=== PATIENT | female | born 1950 | race Two or more races ===

== ENCOUNTER 2018-12-17 18:13 | Inpatient (IN) | payer SELFPAY ==
[~2018-12-17] VITALS: Ht 154.9 cm; Wt 46.7 kg
[2018-12-17] MEDS ORDERED: ONDANSETRON PF 4 MG/2 ML VIAL. IV ONE (20:15)
[2018-12-17] MEDS ORDERED: IV NORMAL SALINE 1000ML BAG 1,000 ML IV SCH (20:15)
[2018-12-17] MEDS ORDERED: fentaNYL PF VIAL 100 MCG/2 ML VIAL IV ONE (20:15)
[2018-12-17 20:43] LABS: BASO # 0.1 x10^3/uL (0.0-0.2); BASO % 0 % (0-3); EOS % 0 % (0-3); HEMATOCRIT 37.2 % (36.0-47.0); HEMOGLOBIN 12.7 g/dL (12.0-15.5); LYMPH # 0.4 x10^3/uL (1.0-4.8); LYMPH % 3 % (24-48); MEAN CORPUSCULAR HEMOGLOBIN 31 pg (25-35); MEAN CORPUSCULAR HGB CONC 34 g/dL (31-37); MEAN CORPUSCULAR VOLUME 91 fL (79-100); MONO # 0.7 x10^3/uL (0.0-1.1); MONO % 5 % (0-9); NEUT % 92 % (31-73); PLATELET COUNT 169 x10^3/uL (140-400); RED BLOOD COUNT 4.07 x10^6/uL (3.50-5.40); RED CELL DISTRIBUTION WIDTH 13.4 % (11.5-14.5); WHITE BLOOD COUNT 16.3 x10^3/uL (4.0-11.0)
[2018-12-17 21:02] LABS: PROTHROMBIN TIME PATIENT 14.3 SEC (11.7-14.0)
[2018-12-17 21:07] LABS: CALCIUM 9.3 mg/dL (8.5-10.1); CREATININE 1.6 mg/dL (0.6-1.0); GFR 32.2; POTASSIUM 4.5 mmol/L (3.5-5.1)
--- NOTE | 2018-12-17 21:09 | RAD ---
CT abdomen and pelvis without contrast: Reason for examination: Abdominal pain with nausea, vomiting and diarrhea. Helical images were obtained through the abdomen pelvis with no intravenous or oral contrast administered. Reconstruction was performed in sagittal and coronal planes. Exposure: One or more of the following individualized dose reduction techniques were utilized for this examination: 1. Automated exposure control 2. Adjustment of the mA and/or kV according to patient size 3. Use of iterative reconstruction technique. The lung bases are clear. The heart size is normal with no pericardial effusion evident. No abnormality seen at the liver, gallbladder, spleen, adrenal glands or pancreas. No abnormality seen at the appendix. The colon shows no no diverticulosis or diverticulitis. The small intestinal tract is not abnormally dilated. No abnormality seen at this stomach. The right kidney shows no renal masses, renal calculi, hydronephrosis or obstructive uropathy. The left kidney shows no renal masses, renal calculi, hydronephrosis or obstructive uropathy but there does appear to be some perinephric stranding. This could reflect pyelonephritis. No abnormality seen at the bladder or vaginal cuff. There are calcifications consistent with phleboliths in the pelvis. No acute bony abnormalities are seen. IMPRESSION: No renal calculi, hydronephrosis or evidence of obstructive uropathy however there is some perinephric stranding in the left retroperitoneal region. This could reflect pyelonephritis. Recommend clinical correlation follow-up. No other focal abnormality seen in the abdomen or pelvis. Electronically signed by: Zehra Seaman MD (12/17/2018 9:06 PM) [facility]
[2018-12-17 21:10] LABS: % BANDS 30 % (0-9); % LYMPHS 3 % (24-48); % MONOS 4 % (0-10); % SEGS 63 % (35-66); ALBUMIN 3.4 g/dL (3.4-5.0); ALBUMIN/GLOBULIN RATIO 0.8 (1.0-1.7); TOTAL BILIRUBIN 0.6 mg/dL (0.2-1.0); TOTAL PROTEIN 7.5 g/dL (6.4-8.2)
[2018-12-17 21:11] LABS: PLT ESTIMATE ADEQUATE (ADEQUATE)
[2018-12-17 21:26] LABS: BILIRUBIN,URINE NEGATIVE (NEG); CLARITY,URINE CLEAR; COLOR,URINE YELLOW; NITRITE,URINE POSITIVE (NEG); PROTEIN,URINE 100 mg/dL (NEG-TRACE); UROBILINOGEN,URINE 0.2 mg/dL (0.2 mg/dL)
[2018-12-17 21:41] LABS: BACTERIA,URINE MANY /HPF (0-FEW); SQUAMOUS EPITHELIAL CELL,UR FEW /LPF; WBC,URINE TNTC /HPF (0-4)
--- NOTE | 2018-12-17 21:43 | PHYS DOC ---
Past Medical History Past Medical History: Diabetes-Type II, Hypertension Past Surgical History: No Surgical History Alcohol Use: None Drug Use: None Adult General Chief Complaint Chief Complaint: NAUSEA/VOMITING/DIARRHA HPI HPI Patient is a 68 year old Algerian speaking female who presents with complaining of nausea and vomiting and diarrhea and abdominal pain. Patient complaining of 4 episodes of vomiting yesterday and 3 episodes of vomiting today. Patient states she had more than 10 episodes of nonbloody diarrhea since yesterday and complaining of constant aching right lower quadrant and suprapubic pain with r adiation to her back since yesterday and rated her pain 9/10. Patient complaining of decrease of appetite and urine output without fever and chills, chest pain, shortness of breath, sick contact. Review of Systems Review of Systems Constitutional: Denies fever or chills [] Eyes: Denies change in visual acuity, redness, or eye pain [] HENT: Denies nasal congestion or sore throat [] Respiratory: Denies cough or shortness of breath [] Cardiovascular: No additional information not addressed in HPI [] GI: Reports abdominal pain, nausea, vomiting, diarrhea [] : Denies dysuria or hematuria [] Musculoskeletal: Denies back pain or joint pain [] Integument: Denies rash or skin lesions [] Neurologic: Denies headache, focal weakness or sensory changes [] Endocrine: Denies polyuria or polydipsia [] All other systems were reviewed and found to be within normal limits, except as documented in this note. Current Medications Current Medications Current Medications Medications (Trade) Dose Ordered Sig/Gareth Start Time Stop Time Status Last Admin Dose Admin Ceftriaxone Sodium (Rocephin) 1 gm 1X ONCE 12/17/18 22:00 12/17/18 22:01 DC 12/17/18 21:45 1 GM Dextrose (Dextrose 50%-Water Syringe) 12.5 gm PRN Q15MIN PRN 12/17/18 22:15 Fentanyl Citrate (Fentanyl 2ml Vial) 25 mcg 1X ONCE 12/17/18 20:15 12/17/18 20:52 DC 12/17/18 21:10 25 MCG Ondansetron HCl (Zofran) 4 mg PRN Q8HRS PRN 12/17/18 22:15 12/18/18 22:14 Sodium Chloride 1,000 ml @ 150 mls/hr Q6H40M 12/17/18 22:30 12/18/18 22:29 Allergies Allergies Allergies Coded Allergies Type Severity Reaction Last Updated Verified No Known Drug Allergies 12/17/18 No Physical Exam Physical Exam Constitutional: Moderate distress, non-toxic appearance. [] HENT: Normocephalic, atraumatic, oropharynx dry. Eyes: PERRLA, EOMI, conjunctiva normal, no discharge. [] Neck: Normal range of motion, no tenderness, supple, no stridor. [] Cardiovascular: Tachycardia, no murmur [] Lungs & Thorax: Bilateral breath sounds clear to auscultation [] Abdomen: Bowel sounds normal, soft, suprapubic guarding ,no tenderness, no aniceto s, no pulsatile masses. [] Skin: Warm, dry, no erythema, no rash. [] Back: No tenderness. Extremities: No tenderness, no cyanosis, no clubbing, ROM intact, no edema. [] Neurologic: Alert and oriented X 3, normal motor function, normal sensory function, no focal deficits noted. [] Psychologic: Affect normal, judgement normal, mood normal. [] Current Patient Data Vital Signs Vital Signs Date Time Temp Pulse Resp B/P (MAP) Pulse Ox O2 Delivery O2 Flow Rate FiO2 12/17/18 21:10 16 99 Room Air 12/17/18 20:15 98.4 124 125/71 (89) 98.4 Lab Values Laboratory Tests Test 12/17/18 19:15 12/17/18 20:25 12/17/18 22:02 Urine Collection Type Unknown Urine Color Yellow Urine Clarity Clear Urine pH 6.0 Urine Specific [place] 1.015 Urine Protein 100 mg/dL (NEG-TRACE) Urine Glucose (UA) >=1000 mg/dL (NEG) Urine Ketones (Stick) Negative mg/dL (NEG) Urine Blood Moderate (NEG) Urine Nitrite Positive (NEG) Urine Bilirubin Negative (NEG) Urine Urobilinogen Dipstick 0.2 mg/dL (0.2 mg/dL) Urine Leukocyte Esterase Moderate (NEG) Urine RBC 6-10 /HPF (0-2) Urine WBC Tntc /HPF (0-4) Urine Squamous Epithelial Cells Few /LPF Urine Bacteria Many /HPF (0-FEW) White Blood Count 16.3 x10^3/uL (4.0-11.0) H Red Blood Count 4.07 x10^6/uL (3.50-5.40) Hemoglobin 12.7 g/dL (12.0-15.5) Hematocrit 37.2 % (36.0-47.0) Mean Corpuscular Volume 91 fL (79-100) Mean Corpuscular Hemoglobin 31 pg (25-35) Mean Corpuscular Hemoglobin Concent 34 g/dL (31-37) Red Cell Distribution Width 13.4 % (11.5-14.5) Platelet Count 169 x10^3/uL (140-400) Neutrophils (%) (Auto) 92 % (31-73) H Lymphocytes (%) (Auto) 3 % (24-48) L Monocytes (%) (Auto) 5 % (0-9) Eosinophils (%) (Auto) 0 % (0-3) Basophils (%) (Auto) 0 % (0-3) Neutrophils # (Auto) 15.0 x10^3uL (1.8-7.7) H Lymphocytes # (Auto) 0.4 x10^3/uL (1.0-4.8) L Monocytes # (Auto) 0.7 x10^3/uL (0.0-1.1) Eosinophils # (Auto) 0.0 x10^3/uL (0.0-0.7) Basophils # (Auto) 0.1 x10^3/uL (0.0-0.2) Segmented Neutrophils % 63 % (35-66) Band Neutrophils % 30 % (0-9) H Lymphocytes % 3 % (24-48) L Monocytes % 4 % (0-10) Platelet Estimate Adequate (ADEQUATE) Prothrombin Time 14.3 SEC (11.7-14.0) H Prothrombin Time INR 1.1 (0.8-1.1) Sodium Level 131 mmol/L (136-145) L Potassium Level 4.5 mmol/L (3.5-5.1) Chloride Level 92 mmol/L (98-107) L Carbon Dioxide Level 23 mmol/L (21-32) Anion Gap 16 (6-14) H Blood Urea Nitrogen 40 mg/dL (7-20) H Creatinine 1.6 mg/dL (0.6-1.0) H Estimated GFR (Cockcroft-Gault) 32.2 BUN/Creatinine Ratio 25 (6-20) H Glucose Level 398 mg/dL (70-99) H Lactic Acid Level 2.7 mmol/L (0.4-2.0) H Calcium Level 9.3 mg/dL (8.5-10.1) Total Bilirubin 0.6 mg/dL (0.2-1.0) Aspartate Amino Transferase (AST) 21 U/L (15-37) Alanine Aminotransferase (ALT) 20 U/L (14-59) Alkaline Phosphatase 87 U/L (46-116) Creatine Kinase 36 U/L (26-192) Troponin I Quantitative < 0.017 ng/mL (0.000-0.055) Total Protein 7.5 g/dL (6.4-8.2) Albumin 3.4 g/dL (3.4-5.0) Albumin/Globulin Ratio 0.8 (1.0-1.7) L Lipase 103 U/L (73-393) Glucose (Fingerstick) 360 mg/dL (70-99) H Laboratory Tests 12/17/18 20:25 Laboratory Tests 12/17/18 20:25 EKG EKG EKG interpreted by me. EKG at 2020 shows sinus tachycardia at rate of 121, normal TN and QT intervals, poor R-wave progress in anteroseptal leads, no acute ST and T-wave abnormalities. Radiology/Procedures Radiology/Procedures [][facility] [address] [place] [address] IMAGING REPORT Signed PATIENT: ASHER HERRERA ACCOUNT: [id number] : 1950 LOCATION: ER AGE: 68 SEX: F EXAM STATUS: REG ER ORD. PHYSICIAN: ZOHRA ESQUIVEL MD REASON: abdominal pain, N/V/D, NO PRIORS, NON CONTRAST PER ORDER PROCEDURE: CT ABDOMEN PELVIS WO CONTRAST CT abdomen and pelvis without contrast: Reason for examination: Abdominal pain with nausea, vomiting and diarrhea. Helical images were obtained through the abdomen pelvis with no intravenous or oral contrast administered. Reconstruction was performed in sagittal and coronal planes. Exposure: One or more of the following individualized dose reduction techniques were utilized for this examination: 1. Automated exposure control 2. Adjustment of the mA and/or kV according to patient size 3. Use of iterative reconstruction technique. The lung bases are clear. The heart size is normal with no pericardial effusion evident. No abnormality seen at the liver, gallbladder, spleen, adrenal glands or pancreas. No abnormality seen at the appendix. The colon shows no no diverticulosis or diverticulitis. The small intestinal tract is not abnormally dilated. No abnormality seen at this stomach. The right kidney shows no renal masses, renal calculi, hydronephrosis or obstructive uropathy. The left kidney shows no renal masses, renal calculi, hydronephrosis or obstructive uropathy but there does appear to be some perinephric stranding. This could reflect pyelonephritis. No abnormality seen at the bladder or vaginal cuff. There are calcifications consistent with phleboliths in the pelvis. No acute bony abnormalities are seen. IMPRESSION: No renal calculi, hydronephrosis or evidence of obstructive uropathy however there is some perinephric stranding in the left retroperitoneal region. This could reflect pyelonephritis. Recommend clinical correlation follow-up. No other focal abnormality seen in the abdomen or pelvis. Electronically signed by: Med Gongora MD (12/17/2018 9:06 PM) [facility] DICTATED and SIGNED BY: MED GONGORA MD DATE: 12/17/182105 Course & Med Decision Making Course & Med Decision Making Pertinent Labs and Imaging studies reviewed. (See chart for details) Evaluation of patient in ER showed 68-year-old female patient with complaining of nausea and vomiting and diarrhea and anal pain since yesterday. Patient had heart rate of 125 at arrival to ER without hypertension or fever or confusion. Patient treated with IV fluid, Zofran, fentanyl with improvement of heart rate and pain. Patient had blood sugar of 398 that improved gradually with IV fluid. She had leukocytosis of 16,000 and UTI and elevation of BUN/creatinine. Of abdomen and pelvis showed possible pyelonephritis. Patient treated with IV antibiotic.Patient requiring admission for further evaluation and treatment. Discussed with Dr. Shields who is in agreement with admission. Discussed findings and plan with patient and family, who acknowledge understanding and agreement. Dragon Disclaimer Dragon Disclaimer This electronic medical record was generated, in whole or in part, using a voice recognition dictation system. Departure Departure Impression: Primary Impression: Sepsis Additional Impressions: Acute gastroenteritis Renal insufficiency Hyperglycemia Uncontrolled diabetes mellitus Pyelonephritis Disposition: 09 ADMITTED INPATIENT (at 2204) Admitting Physician: Shraddha Shields (accepted admission at 22 or 3) Condition: GUARDED Referrals: NO PCP (PCP) Problem Qualifiers Primary Impression: Sepsis Sepsis type: sepsis due to unspecified organism Qualified Codes: A41.9 - Sepsis, unspecified organism Additional Impressions: Uncontrolled diabetes mellitus Diabetes mellitus type: type 2 Glycemic state: with hyperglycemia Qualified Codes: E11.65 - Type 2 diabetes mellitus with hyperglycemia ZOHRA ESQUIVEL MD December 17, 2018 21:43
[2018-12-17] MEDS ORDERED: IV NORMAL SALINE 1000ML BAG 1,000 ML IV ONE (22:00)
[2018-12-17] MEDS ORDERED: cefTRIAXone IV Push 1 GM VIAL. IVP ONE (22:00)
[2018-12-17] MEDS ORDERED: DEXTROSE 50% 25 GM / 50ML DISP.SYRIN. IV PRN (22:15)
[2018-12-17] MEDS ORDERED: ONDANSETRON PF 4 MG/2 ML VIAL. IV PRN (22:15)
[2018-12-17] MEDS: IV NORMAL SALINE 1000ML BAG 1,000 ML IV SCH (22:30)
[2018-12-18] VITALS (7 sets, daily range): BP systolic 111–183; BP diastolic 55–97
[2018-12-18] MEDS ORDERED: DEXTROSE 50% 25 GM / 50ML DISP.SYRIN. IV PRN ×2 (01:30→01:45)
[2018-12-18] MEDS ORDERED: INSULIN LISPRO 300 UNITS/3 ML INSULN.PEN. SQ ONE (02:00)
--- NOTE | 2018-12-18 02:30 | NUR ---
This nurse in room to administer 10units of Humalog to patient. Patient stated last time she received insulin her vision became very blurry and requested to have a smaller dose. 7 units of insulin administered at this time. Blood sugar 310. Will continue to monitor.
[2018-12-18] MEDS ORDERED: fentaNYL PF VIAL 100 MCG/2 ML VIAL IV PRN (02:45)
--- NOTE | 2018-12-18 04:30 | NUR ---
Patient became very nauseous, called this nurse investment professional light. Upon arriving to room, patient's heart rate in 130's-140's. Glucose 241. Temp 100.2. Blood pressure 180/77. Patient shaking stating she is cold. Dr.Marsh armstrong, received orders for Metoprolol and Tylenol. Will continue to monitor.
[2018-12-18] MEDS ORDERED: ACETAMINOPHEN 325 MG TABLET. PO PRN (04:45)
[2018-12-18] MEDS ORDERED: METOPROLOL TART IMMED RELEASE 50 MG TABLET. PO ONE (05:00)
[2018-12-18] MEDS: IV NORMAL SALINE 1000ML BAG 1,000 ML IV SCH ×3 (05:10→18:30)
--- NOTE | 2018-12-18 06:23 | EKG ---
[facility] [address] [place] [address] Test Date: 2018-12-17 Test Time: 20:21:03 Pat Name: ASHER HERRERA Department: Room: Gender: F [employer]: : 1950 Requested By: ZOHRA ESQUIVEL Order Number: [id number] Reading MD: Measurements Intervals [place] Rate: 121 P: 64 SC: 132 QRS: 9 QRSD: 74 T: 59 QT: 304 QTc: 434 Interpretive Statements SINUS TACHYCARDIA QRS(T) CONTOUR ABNORMALITY CONSIDER ANTEROSEPTAL MYOCARDIAL DAMAGE POSSIBLY ABNORMAL ECG RI6.01 Unconfirmed report No previous ECG available for comparison
[2018-12-18] MEDS: INSULIN LISPRO 300 UNITS/3 ML INSULN.PEN. SQ SCH ×3 (08:00→17:00)
[2018-12-18] MEDS ORDERED: INSULIN LISPRO 300 UNITS/3 ML INSULN.PEN. SQ SCH (08:00)
[2018-12-18] MEDS ORDERED: MORPHINE SULFATE 2 MG/ML VIAL. IV PRN (09:00)
[2018-12-18] MEDS ORDERED: ONDANSETRON PF 4 MG/2 ML VIAL. IV PRN (09:00)
[2018-12-18] MEDS ORDERED: diphenhydrAMINE HCL 25 MG CAPSULE PO PRN (09:00)
[2018-12-18] MEDS: METOPROLOL TART IMMED RELEASE 50 MG TABLET. PO SCH ×2 (10:30→20:35)
--- NOTE | 2018-12-18 10:59 | PDOC1 ---
History and Physical Date of Admission Date of Admission DATE: 12/18/18 TIME: 10:51 Identification/Chief Complaint Chief Complaint abd pain Source Source: Caregiver, Chart review, Patient History of Present Illness History of Present Illness She only speaks minimal Taiwanese, there is no family at bedside. Most of the hx obtained from chart. SHe had nausea, vomiting, diarrhea, abdominal pain. 4 episodes of vomiting prior to admission. Nonbloody diarrhea. Denies recent sick contact or travel. Admitted for working diagnosis of acute gastroenteritis with nonimpressive CAT scan. But found to have UTI. Diabetic with blood sugar 360 on insulin with unknown regimen. [facility] is in [place], Lactate was 2.7 at ER but now down to 1.6 which is normal. Increased anion gap at 16 with mild hyponatremia 131 and AK I of 1.6 creatinine. We will admit. Continue hydration recheck anion gap and BMP. Avoid nephrotoxins. Empiric antibiotics. Called by RN for GNR marleny in 1 out of 4 bottles and I have consulted ID She claims she feels much better today She ate her breakfast pretty good addendum: dtr now tells staff she is on metformin 850 maybe twice a day Creatinine is 1.4, I cannot resume metformin yet We'll do sliding scale insulin for now check A1c Past Medical History Endocrine: Diabetes Past Surgical History Past Surgical History: No pertinent history Family History Family History: Diabetes, Hypertension Social History Smoke: No ALCOHOL: none Drugs: None Current Problem List Problem List Problems Medical Problems: (1) Acute gastroenteritis Status: Acute (2) Hyperglycemia Status: Acute (3) Pyelonephritis Status: Acute (4) Renal insufficiency Status: Acute (5) Sepsis Status: Acute (6) Uncontrolled diabetes mellitus Status: Acute Current Medications Current Medications Current Medications Sodium Chloride 1,000 ml @ 1,000 mls/hr Q1H IV Last administered on 12/17/18at 21:10; Start 12/17/18 at 20:15; Stop 12/17/18 at 21:14; Status DC Fentanyl Citrate (Fentanyl 2ml Vial) 25 mcg 1X ONCE IV Last administered on 12/17/18at 21:10; Start 12/17/18 at 20:15; Stop 12/17/18 at 20:52; Status DC Ondansetron HCl (Zofran) 4 mg 1X ONCE IV Last administered on 12/17/18at 21:11; Start 12/17/18 at 20:15; Stop 12/17/18 at 20:52; Status DC Ceftriaxone Sodium (Rocephin) 1 gm 1X ONCE IVP Last administered on 12/17/18at 21:45; Start 12/17/18 at 22:00; Stop 12/17/18 at 22:01; Status DC Sodium Chloride 1,000 ml @ 1,000 mls/hr 1X ONCE IV Last administered on 12/17/18at 21:47; Start 12/17/18 at 22:00; Stop 12/17/18 at 22:59; Status DC Ondansetron HCl (Zofran) 4 mg PRN Q8HRS PRN IV NAUSEA/VOMITING 1ST CHOICE Last administered on 12/18/18at 04:30; Start 12/17/18 at 22:15; Stop 12/18/18 at 08:49; Status DC Sodium Chloride 1,000 ml @ 150 mls/hr Q6H40M IV Last administered on 12/17/18at 22:30; Start 12/17/18 at 22:30; Stop 12/18/18 at 22:29 Dextrose (Dextrose 50%-Water Syringe) 12.5 gm PRN Q15MIN PRN IV SEE COMMENTS; Start 12/17/18 at 22:15; Stop 12/18/18 at 08:51; Status DC Insulin Human Lispro (HumaLOG) 0-9 UNITS TIDWMEALS SQ ; Start 12/18/18 at 08:00; Status UNV Dextrose (Dextrose 50%-Water Syringe) 12.5 gm PRN Q15MIN PRN IV SEE COMMENTS; Start 12/18/18 at 01:30; Status UNV Insulin Human Lispro (HumaLOG) 0-9 UNITS TIDWMEALS SQ ; Start 12/18/18 at 08:00 Dextrose (Dextrose 50%-Water Syringe) 12.5 gm PRN Q15MIN PRN IV SEE COMMENTS; Start 12/18/18 at 01:45 Insulin Human Lispro (HumaLOG) 10 units 1X ONCE SQ Last administered on 12/18/18at 02:27; Start 12/18/18 at 02:00; Stop 12/18/18 at 02:01; Status DC Fentanyl Citrate (Fentanyl 2ml Vial) 25 mcg PRN Q2HR PRN IV SEVERE PAIN Last administered on 12/18/18at 02:55; Start 12/18/18 at 02:45 Metoprolol Tartrate (Lopressor) 50 mg BID PO Last administered on 12/18/18at 10:30; Start 12/18/18 at 09:00 Metoprolol Tartrate (Lopressor) 50 mg 1X ONCE PO Last administered on 12/18/18at 04:46; Start 12/18/18 at 05:00; Stop 12/18/18 at 05:02; Status DC Acetaminophen (Tylenol) 650 mg PRN Q6HRS PRN PO mild temp/pain Last administered on 12/18/18at 04:47; Start 12/18/18 at 04:45; Stop 12/18/18 at 08:51; Status DC Ondansetron HCl (Zofran) 4 mg PRN Q6HRS PRN IV NAUSEA/VOMITING 1ST CHOICE; Start 12/18/18 at 09:00 Acetaminophen (Tylenol) 500 mg PRN Q6HRS PRN PO MILD PAIN / TEMP; Start 12/18/18 at 09:00 Acetaminophen/ Codeine Phosphate (Tylenol #3) 1 tab PRN Q6HRS PRN PO MODERATE PAIN; Start 12/18/18 at 09:00 Ceftriaxone Sodium (Rocephin) 1 gm Q24H IVP ; Start 12/18/18 at 21:00 Morphine Sulfate (Morphine Sulfate) 2 mg PRN Q2HR PRN IV MODERATE PAIN; Start 12/18/18 at 09:00 Diphenhydramine HCl (Benadryl) 25 mg PRN QHS PRN PO INSOMNIA; Start 12/18/18 at 09:00 Allergies Allergies: Coded Allergies: No Known Drug Allergies (Unverified , 12/17/18) ROS Review of System A 14 point ROS was completed with the following noted as positive: Other systems reviewed and negative. \CONSTITUTIONAL: No fever or chills EYES: No recent changes SKIN: No rash or itching CARDIOVASCULAR: No chest pain, syncope, palpitations, or edema RESPIRATORY: No SOB or cough GASTROINTESTINAL: No nausea, vomiting or abdominal pain NEUROLOGICAL: No headaches or weakness ENDOCRINE: No cold or heat intolerance GENITOURINARY: No urgency or frequency of urination MUSCULOSKELETAL: No back pain or joint pain LYMPHATICS: No enlarged lymph nodes PSYCHIATRIC: No anxiety or depression Physical Exam General: Alert, Oriented X3, Cooperative, No acute distress HEENT: Atraumatic, PERRLA, EOMI Lungs: Clear to auscultation, Normal air movement Heart: S1S2, RRR, no thrills, no rubs, no gallops, no murmurs Cardiovascular: S1, S2 Breasts: Normal, Rt breast nml w/o mass, Lt breast nml w/o mass, Nipples normal Abdomen: Normal bowel sounds, Soft, No tenderness, No hepatosplenomegaly, No masses Rectal Exam: not examined PELVIC: Nml ext genitalia Extremities: No clubbing, No cyanosis, No edema, Normal pulses, No tenderness/swelling Skin: No rashes, No breakdown, No significant lesion Neuro: Normal gait, Normal speech, Strength at 5/5 X4 ext, Normal tone, Sensation intact, Cranial nerves 3-12 NL, Reflexes 2+ Psych/Mental Status: Mental status NL, Mood NL Vitals Vitals Vital Signs Date Time Temp Pulse Resp B/P (MAP) Pulse Ox O2 Delivery O2 Flow Rate FiO2 12/18/18 10:30 103 134/69 12/18/18 08:00 Room Air 12/18/18 06:55 98.7 16 97 98.7 Labs Labs Laboratory Tests Test 12/17/18 19:15 12/17/18 20:25 12/17/18 22:02 12/18/18 00:55 Urine Collection Type Unknown Urine Color Yellow Urine Clarity Clear Urine pH 6.0 Urine Specific [place] 1.015 Urine Protein 100 mg/dL (NEG-TRACE) Urine Glucose (UA) >=1000 mg/dL (NEG) Urine Ketones (Stick) Negative mg/dL (NEG) Urine Blood Moderate (NEG) Urine Nitrite Positive (NEG) Urine Bilirubin Negative (NEG) Urine Urobilinogen Dipstick 0.2 mg/dL (0.2 mg/dL) Urine Leukocyte Esterase Moderate (NEG) Urine RBC 6-10 /HPF (0-2) Urine WBC Tntc /HPF (0-4) Urine Squamous Epithelial Cells Few /LPF Urine Bacteria Many /HPF (0-FEW) White Blood Count 16.3 x10^3/uL (4.0-11.0) Red Blood Count 4.07 x10^6/uL (3.50-5.40) Hemoglobin 12.7 g/dL (12.0-15.5) Hematocrit 37.2 % (36.0-47.0) Mean Corpuscular Volume 91 fL (79-100) Mean Corpuscular Hemoglobin 31 pg (25-35) Mean Corpuscular Hemoglobin Concent 34 g/dL (31-37) Red Cell Distribution Width 13.4 % (11.5-14.5) Platelet Count 169 x10^3/uL (140-400) Neutrophils (%) (Auto) 92 % (31-73) Lymphocytes (%) (Auto) 3 % (24-48) Monocytes (%) (Auto) 5 % (0-9) Eosinophils (%) (Auto) 0 % (0-3) Basophils (%) (Auto) 0 % (0-3) Neutrophils # (Auto) 15.0 x10^3uL (1.8-7.7) Lymphocytes # (Auto) 0.4 x10^3/uL (1.0-4.8) Monocytes # (Auto) 0.7 x10^3/uL (0.0-1.1) Eosinophils # (Auto) 0.0 x10^3/uL (0.0-0.7) Basophils # (Auto) 0.1 x10^3/uL (0.0-0.2) Segmented Neutrophils % 63 % (35-66) Band Neutrophils % 30 % (0-9) Lymphocytes % 3 % (24-48) Monocytes % 4 % (0-10) Platelet Estimate Adequate (ADEQUATE) Prothrombin Time 14.3 SEC (11.7-14.0) Prothromb Time International Ratio 1.1 (0.8-1.1) Sodium Level 131 mmol/L (136-145) Potassium Level 4.5 mmol/L (3.5-5.1) Chloride Level 92 mmol/L (98-107) Carbon Dioxide Level 23 mmol/L (21-32) Anion Gap 16 (6-14) Blood Urea Nitrogen 40 mg/dL (7-20) Creatinine 1.6 mg/dL (0.6-1.0) Estimated GFR (Cockcroft-Gault) 32.2 BUN/Creatinine Ratio 25 (6-20) Glucose Level 398 mg/dL (70-99) Lactic Acid Level 2.7 mmol/L (0.4-2.0) Calcium Level 9.3 mg/dL (8.5-10.1) Total Bilirubin 0.6 mg/dL (0.2-1.0) Aspartate Amino Transf (AST/SGOT) 21 U/L (15-37) Alanine Aminotransferase (ALT/SGPT) 20 U/L (14-59) Alkaline Phosphatase 87 U/L (46-116) Creatine Kinase 36 U/L (26-192) Troponin I Quantitative < 0.017 ng/mL (0.000-0.055) Total Protein 7.5 g/dL (6.4-8.2) Albumin 3.4 g/dL (3.4-5.0) Albumin/Globulin Ratio 0.8 (1.0-1.7) Lipase 103 U/L (73-393) Glucose (Fingerstick) 360 mg/dL (70-99) 352 mg/dL (70-99) Test 12/18/18 02:20 12/18/18 02:30 12/18/18 04:29 12/18/18 07:09 Glucose (Fingerstick) 310 mg/dL (70-99) 242 mg/dL (70-99) 222 mg/dL (70-99) Lactic Acid Level 1.4 mmol/L (0.4-2.0) Laboratory Tests Test 12/17/18 19:15 12/17/18 20:25 12/17/18 22:02 12/18/18 00:55 Urine Collection Type Unknown Urine Color Yellow Urine Clarity Clear Urine pH 6.0 Urine Specific [place] 1.015 Urine Protein 100 mg/dL (NEG-TRACE) Urine Glucose (UA) >=1000 mg/dL (NEG) Urine Ketones (Stick) Negative mg/dL (NEG) Urine Blood Moderate (NEG) Urine Nitrite Positive (NEG) Urine Bilirubin Negative (NEG) Urine Urobilinogen Dipstick 0.2 mg/dL (0.2 mg/dL) Urine Leukocyte Esterase Moderate (NEG) Urine RBC 6-10 /HPF (0-2) Urine WBC Tntc /HPF (0-4) Urine Squamous Epithelial Cells Few /LPF Urine Bacteria Many /HPF (0-FEW) White Blood Count 16.3 x10^3/uL (4.0-11.0) Red Blood Count 4.07 x10^6/uL (3.50-5.40) Hemoglobin 12.7 g/dL (12.0-15.5) Hematocrit 37.2 % (36.0-47.0) Mean Corpuscular Volume 91 fL (79-100) Mean Corpuscular Hemoglobin 31 pg (25-35) Mean Corpuscular Hemoglobin Concent 34 g/dL (31-37) Red Cell Distribution Width 13.4 % (11.5-14.5) Platelet Count 169 x10^3/uL (140-400) Neutrophils (%) (Auto) 92 % (31-73) Lymphocytes (%) (Auto) 3 % (24-48) Monocytes (%) (Auto) 5 % (0-9) Eosinophils (%) (Auto) 0 % (0-3) Basophils (%) (Auto) 0 % (0-3) Neutrophils # (Auto) 15.0 x10^3uL (1.8-7.7) Lymphocytes # (Auto) 0.4 x10^3/uL (1.0-4.8) Monocytes # (Auto) 0.7 x10^3/uL (0.0-1.1) Eosinophils # (Auto) 0.0 x10^3/uL (0.0-0.7) Basophils # (Auto) 0.1 x10^3/uL (0.0-0.2) Segmented Neutrophils % 63 % (35-66) Band Neutrophils % 30 % (0-9) Lymphocytes % 3 % (24-48) Monocytes % 4 % (0-10) Platelet Estimate Adequate (ADEQUATE) Prothrombin Time 14.3 SEC (11.7-14.0) Prothromb Time International Ratio 1.1 (0.8-1.1) Sodium Level 131 mmol/L (136-145) Potassium Level 4.5 mmol/L (3.5-5.1) Chloride Level 92 mmol/L (98-107) Carbon Dioxide Level 23 mmol/L (21-32) Anion Gap 16 (6-14) Blood Urea Nitrogen 40 mg/dL (7-20) Creatinine 1.6 mg/dL (0.6-1.0) Estimated GFR (Cockcroft-Gault) 32.2 BUN/Creatinine Ratio 25 (6-20) Glucose Level 398 mg/dL (70-99) Lactic Acid Level 2.7 mmol/L (0.4-2.0) Calcium Level 9.3 mg/dL (8.5-10.1) Total Bilirubin 0.6 mg/dL (0.2-1.0) Aspartate Amino Transf (AST/SGOT) 21 U/L (15-37) Alanine Aminotransferase (ALT/SGPT) 20 U/L (14-59) Alkaline Phosphatase 87 U/L (46-116) Creatine Kinase 36 U/L (26-192) Troponin I Quantitative < 0.017 ng/mL (0.000-0.055) Total Protein 7.5 g/dL (6.4-8.2) Albumin 3.4 g/dL (3.4-5.0) Albumin/Globulin Ratio 0.8 (1.0-1.7) Lipase 103 U/L (73-393) Glucose (Fingerstick) 360 mg/dL (70-99) 352 mg/dL (70-99) Test 12/18/18 02:20 12/18/18 02:30 12/18/18 04:29 12/18/18 07:09 Glucose (Fingerstick) 310 mg/dL (70-99) 242 mg/dL (70-99) 222 mg/dL (70-99) Lactic Acid Level 1.4 mmol/L (0.4-2.0) VTE Prophylaxis Ordered VTE Prophylaxis Devices: Yes VTE Pharmacological Prophylaxi: Yes Assessment/Plan Assessment/Plan UTI in a diabetic HONK Increase agap acidosis with mild hyponatremia AK I VMN Sepsis POA-elevated lactate GNR marleny bacteremia 1 out of 4 bottles Language barrier PLAN: admit 2 MN Aggressive IVF to address HON K, AK I and hyponatremia Consult ID regarding GNR marleny bacteremia 1 out of 4 bottles Sliding-scale insulin for now-check [id number] resume metformin because of AK I Treat the UTI, wait for urine cx and ff up BCs Supportive meds Discussed with RN and infectious disease FULL CODE PATRICIA KINCAID MD December 18, 2018 10:59
--- NOTE | 2018-12-18 11:05 | NUR ---
SW following pt for anticipated dc needs. Chart reviewed. Pt lives at home with family and is self pay. No discharge recommendations noted at this time.
--- NOTE | 2018-12-18 11:18 | PDOC ---
Infectious Disease Note Vital Signs: Vital Signs Vital Signs Date Time Temp Pulse Resp B/P (MAP) Pulse Ox O2 Delivery O2 Flow Rate FiO2 12/18/18 10:30 103 134/69 12/18/18 08:00 Room Air 12/18/18 06:55 98.7 16 97 98.7 Medications: Inpatient Meds: Current Medications Medications (Trade) Dose Ordered Sig/Gareth Start Time Stop Time Status Last Admin Dose Admin Acetaminophen (Tylenol) 500 mg PRN Q6HRS PRN 12/18/18 09:00 Acetaminophen/ Codeine Phosphate (Tylenol #3) 1 tab PRN Q6HRS PRN 12/18/18 09:00 Ceftriaxone Sodium (Rocephin) 1 gm Q24H 12/18/18 21:00 Dextrose (Dextrose 50%-Water Syringe) 12.5 gm PRN Q15MIN PRN 12/18/18 01:45 Diphenhydramine HCl (Benadryl) 25 mg PRN QHS PRN 12/18/18 09:00 Fentanyl Citrate (Fentanyl 2ml Vial) 25 mcg PRN Q2HR PRN 12/18/18 02:45 12/18/18 02:55 25 MCG Insulin Human Lispro (HumaLOG) 10 units 1X ONCE 12/18/18 02:00 12/18/18 02:01 DC 12/18/18 02:27 7 UNITS Metoprolol Tartrate (Lopressor) 50 mg 1X ONCE 12/18/18 05:00 12/18/18 05:02 DC 12/18/18 04:46 50 MG Morphine Sulfate (Morphine Sulfate) 2 mg PRN Q2HR PRN 12/18/18 09:00 Ondansetron HCl (Zofran) 4 mg PRN Q6HRS PRN 12/18/18 09:00 Sodium Chloride 1,000 ml @ 150 mls/hr Q6H40M 12/17/18 22:30 12/18/18 22:29 12/17/18 22:30 150 MLS/HR Labs: Lab Laboratory Tests Test 12/17/18 19:15 12/17/18 20:25 12/17/18 22:02 12/18/18 00:55 Urine Collection Type Unknown Urine Color Yellow Urine Clarity Clear Urine pH 6.0 Urine Specific [place] 1.015 Urine Protein 100 mg/dL (NEG-TRACE) Urine Glucose (UA) >=1000 mg/dL (NEG) Urine Ketones (Stick) Negative mg/dL (NEG) Urine Blood Moderate (NEG) Urine Nitrite Positive (NEG) Urine Bilirubin Negative (NEG) Urine Urobilinogen Dipstick 0.2 mg/dL (0.2 mg/dL) Urine Leukocyte Esterase Moderate (NEG) Urine RBC 6-10 /HPF (0-2) Urine WBC Tntc /HPF (0-4) Urine Squamous Epithelial Cells Few /LPF Urine Bacteria Many /HPF (0-FEW) White Blood Count 16.3 x10^3/uL (4.0-11.0) Red Blood Count 4.07 x10^6/uL (3.50-5.40) Hemoglobin 12.7 g/dL (12.0-15.5) Hematocrit 37.2 % (36.0-47.0) Mean Corpuscular Volume 91 fL (79-100) Mean Corpuscular Hemoglobin 31 pg (25-35) Mean Corpuscular Hemoglobin Concent 34 g/dL (31-37) Red Cell Distribution Width 13.4 % (11.5-14.5) Platelet Count 169 x10^3/uL (140-400) Neutrophils (%) (Auto) 92 % (31-73) Lymphocytes (%) (Auto) 3 % (24-48) Monocytes (%) (Auto) 5 % (0-9) Eosinophils (%) (Auto) 0 % (0-3) Basophils (%) (Auto) 0 % (0-3) Neutrophils # (Auto) 15.0 x10^3uL (1.8-7.7) Lymphocytes # (Auto) 0.4 x10^3/uL (1.0-4.8) Monocytes # (Auto) 0.7 x10^3/uL (0.0-1.1) Eosinophils # (Auto) 0.0 x10^3/uL (0.0-0.7) Basophils # (Auto) 0.1 x10^3/uL (0.0-0.2) Segmented Neutrophils % 63 % (35-66) Band Neutrophils % 30 % (0-9) Lymphocytes % 3 % (24-48) Monocytes % 4 % (0-10) Platelet Estimate Adequate (ADEQUATE) Prothrombin Time 14.3 SEC (11.7-14.0) Prothromb Time International Ratio 1.1 (0.8-1.1) Sodium Level 131 mmol/L (136-145) Potassium Level 4.5 mmol/L (3.5-5.1) Chloride Level 92 mmol/L (98-107) Carbon Dioxide Level 23 mmol/L (21-32) Anion Gap 16 (6-14) Blood Urea Nitrogen 40 mg/dL (7-20) Creatinine 1.6 mg/dL (0.6-1.0) Estimated GFR (Cockcroft-Gault) 32.2 BUN/Creatinine Ratio 25 (6-20) Glucose Level 398 mg/dL (70-99) Lactic Acid Level 2.7 mmol/L (0.4-2.0) Calcium Level 9.3 mg/dL (8.5-10.1) Total Bilirubin 0.6 mg/dL (0.2-1.0) Aspartate Amino Transf (AST/SGOT) 21 U/L (15-37) Alanine Aminotransferase (ALT/SGPT) 20 U/L (14-59) Alkaline Phosphatase 87 U/L (46-116) Creatine Kinase 36 U/L (26-192) Troponin I Quantitative < 0.017 ng/mL (0.000-0.055) Total Protein 7.5 g/dL (6.4-8.2) Albumin 3.4 g/dL (3.4-5.0) Albumin/Globulin Ratio 0.8 (1.0-1.7) Lipase 103 U/L (73-393) Glucose (Fingerstick) 360 mg/dL (70-99) 352 mg/dL (70-99) Test 12/18/18 02:20 12/18/18 02:30 12/18/18 04:29 12/18/18 07:09 Glucose (Fingerstick) 310 mg/dL (70-99) 242 mg/dL (70-99) 222 mg/dL (70-99) Lactic Acid Level 1.4 mmol/L (0.4-2.0) Objective: Assessment: Pt seen and examined IMP GNR sepsis with bacteremia POA ID and SHIRIN pending source gi or gu UTI N/V/D/Abdo pain DM poorly controlled Plan: Plan of Care DC Ceftriaxone Zosyn renal dosing f/u GNR in BC repeat BC f/u c/s and labs in Thank you [id number] RADHA CARL MD December 18, 2018 11:18
[2018-12-18] MEDS: PIPERACILLIN/TAZOBACTAM 2.25 GM in IV NORMAL SALINE 50ML 50 ML IV SCH ×2 (12:22→18:17)
[2018-12-18] MEDS: ACETAMINOPHEN/CODEINE 300/30MG TABLET. PO PRN (15:09)
[2018-12-18] MEDS: ACETAMINOPHEN 500 MG TABLET PO PRN (15:09)
[2018-12-18] MEDS ORDERED: PROCHLORPERAZINE 10 MG/2 ML VIAL. IV PRN (16:15)
[2018-12-18] MEDS: LACTOBACILLUS RHAMNOSUS GG 1 CAPSULE. PO SCH (20:35)
[2018-12-18] MEDS ORDERED: cefTRIAXone IV Push 1 GM VIAL. IVP SCH (21:00)
[2018-12-19] MEDS: ACETAMINOPHEN 500 MG TABLET PO PRN ×3 (00:18→20:20)
[2018-12-19] MEDS: PIPERACILLIN/TAZOBACTAM 2.25 GM in IV NORMAL SALINE 50ML 50 ML IV SCH ×2 (00:20→05:28)
[2018-12-19 03:00] VITALS: BP 129/62
--- NOTE | 2018-12-19 04:35 | CONS ---
DATE OF CONSULTATION: 12/18/2018 REFERRING PHYSICIAN: Dr. Hawley. REASON FOR CONSULTATION: Gram-negative bacteremia. 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 The patient presented to the ER with nausea, vomiting, diarrhea and abdominal pain. She denies any sick contact. Denies any symptoms. Has diabetes. Blood sugars were 360. The patient underwent blood cultures 1/4 bottles are reported positive for gram-negative rods. ID and SHIRIN is pending at this time. White count was elevated at 16.3 with a bandemia. UA showed pyuria. A CT of the abdomen and pelvis showed no renal calculi, hydronephrosis or evidence of obstructive uropathy. However, there is some perinephric stranding in the left retroperitoneal region could reflect pyelonephritis. The patient denies any sick contact, was started on ceftriaxone. ID consult has been requested for antibiotic management. This morning, she feels a little better. She ate her breakfast, tolerating p.o. intake well. Lactate was 2.7 and this morning is 1.6. Creatinine was 1.6 and this morning is 1.4. PAST MEDICAL HISTORY: Diabetes. PAST SURGICAL HISTORY: Denies. FAMILY HISTORY: Positive for diabetes and high blood pressure. SOCIAL HISTORY: Denies smoking, ETOH or illicit drug use. Daughter at bedside and granddaughter at bedside. REVIEW OF SYSTEMS: Limited except for above in HPI. ALLERGIES: No known drug allergies. CURRENT MEDICATIONS: IV Rocephin. Other medications reviewed in the medication list. PHYSICAL EXAMINATION: VITAL SIGNS: Temperature 98.7, pulse 103, respiratory rate 16 and blood pressure 134/69. GENERAL: Alert, oriented, awake female, lying in bed comfortably, in no acute distress, cooperative. HEENT: Normocephalic, atraumatic and anicteric. No thrush. Oral mucosa moist. NECK: Supple. No JVD. No thyromegaly. LUNGS: Clear bilaterally. No wheezing. HEART: S1 and S2. No gallops, murmurs or rubs. ABDOMEN: Soft, nontender and nondistended. No rebound and no guarding. EXTREMITIES: No edema, no cyanosis and no clubbing. NEUROLOGICAL: Alert and oriented x 3, grossly nonfocal. PSYCHIATRIC: Cooperative, appropriate mood and affect. DERMATOLOGIC: Warm, dry. No generalized rash. No skin breakdown noted. LABORATORY DATA: WBC 16.3, hemoglobin 12.7, hematocrit 37.0, platelets 169 and bands 30. Sodium 131, potassium 4.5, chloride 92, bicarbonate 23, BUN 40 and creatinine 1.6. Lactate was 2.7 9 and repeat lactate is 1.4 from 2.7. Glucose is still elevated at 360. IMAGING DATA: CT of the abdomen and pelvis as above. MICRO: Blood culture 1 out 4 bottles positive for Gram-negative marleny. ID and SHIRIN pending at this time. Urine culture pending at this time. IMPRESSION: 1. Gram-negative sepsis, 1/4 BC bottles , POA source gastrointestinal or genitourinary. 2. Urinary tract infection with possible pyelonephritis. 3. Diabetes mellitus, poorly controlled. 4. Leukocytosis and lactic acidosis from gram-negative urosepsis. RECOMMENDATIONS: 1. Discontinue ceftriaxone. 2. Start empiric Zosyn. 3. Repeat blood cultures. 4. Follow up gram-negative marleny in blood culture. 5. Follow up labs and cultures. 6. Continue supportive care. 7. Discussed with RN. 8. Discussed with daughter and granddaughter at bedside who helped with translation. Thank you, Dr. Hawley for consulting Infectious Disease to participate in this patient's care. If you have any questions, do not hesitate to contact me. RADHA CARL MD DR: YENNI/danny JOB#: [id number] / [id number] DESI
[2018-12-19 05:57] LABS: BASO % 0 % (0-3); EOS # 0.1 x10^3/uL (0.0-0.7); EOS % 1 % (0-3); HEMATOCRIT 30.4 % (36.0-47.0); HEMOGLOBIN 10.4 g/dL (12.0-15.5); LYMPH # 0.5 x10^3/uL (1.0-4.8); LYMPH % 5 % (24-48); MEAN CORPUSCULAR HEMOGLOBIN 31 pg (25-35); MEAN CORPUSCULAR HGB CONC 34 g/dL (31-37); MEAN CORPUSCULAR VOLUME 92 fL (79-100); MONO # 0.4 x10^3/uL (0.0-1.1); MONO % 4 % (0-9); NEUT % 91 % (31-73); PLATELET COUNT 136 x10^3/uL (140-400); RED BLOOD COUNT 3.32 x10^6/uL (3.50-5.40); RED CELL DISTRIBUTION WIDTH 13.3 % (11.5-14.5)
[2018-12-19 06:00] LABS: CALCIUM 8.3 mg/dL (8.5-10.1); CREATININE 0.9 mg/dL (0.6-1.0); GFR 62.6; POTASSIUM 3.2 mmol/L (3.5-5.1)
[2018-12-19 07:00] VITALS: BP 160/87
[2018-12-19] MEDS: METOPROLOL TART IMMED RELEASE 50 MG TABLET. PO SCH ×2 (08:50→20:21)
[2018-12-19] MEDS: LACTOBACILLUS RHAMNOSUS GG 1 CAPSULE. PO SCH ×2 (08:50→20:20)
[2018-12-19] MEDS: INSULIN LISPRO 300 UNITS/3 ML INSULN.PEN. SQ SCH ×3 (08:53→18:05)
--- NOTE | 2018-12-19 10:47 | PDOC ---
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 Vital Signs: Vital Signs Vital Signs Date Time Temp Pulse Resp B/P (MAP) Pulse Ox O2 Delivery O2 Flow Rate FiO2 12/19/18 08:50 108 160/87 12/19/18 08:00 Room Air 12/19/18 07:00 99.8 16 97 99.8 Physical Exam: PHYSICAL EXAM GENERAL: Alert, oriented, awake female, lying in bed comfortably, in no acute distress, cooperative. HEENT: Normocephalic, atraumatic and anicteric. No thrush. Oral mucosa moist. NECK: Supple. No JVD. No thyromegaly. LUNGS: Clear bilaterally. No wheezing. HEART: S1 and S2. No gallops, murmurs or rubs. ABDOMEN: Soft, nontender and nondistended. No rebound and no guarding. EXTREMITIES: No edema, no cyanosis and no clubbing. NEUROLOGICAL: Alert and oriented x 3, grossly nonfocal. PSYCHIATRIC: Cooperative, appropriate mood and affect. DERMATOLOGIC: Warm, dry. No generalized rash. No skin breakdown noted. Medications: Inpatient Meds: Current Medications Medications (Trade) Dose Ordered Sig/Gareth Start Time Stop Time Status Last Admin Dose Admin Acetaminophen (Tylenol) 500 mg PRN Q6HRS PRN 12/18/18 09:00 12/19/18 00:18 500 MG Acetaminophen/ Codeine Phosphate (Tylenol #3) 1 tab PRN Q6HRS PRN 12/18/18 09:00 12/18/18 15:09 1 TAB Ceftriaxone Sodium (Rocephin) 1 gm Q24H 12/18/18 21:00 12/18/18 21:00 DC Dextrose (Dextrose 50%-Water Syringe) 12.5 gm PRN Q15MIN PRN 12/18/18 01:45 Diphenhydramine HCl (Benadryl) 25 mg PRN QHS PRN 12/18/18 09:00 Fentanyl Citrate (Fentanyl 2ml Vial) 25 mcg PRN Q2HR PRN 12/18/18 02:45 12/18/18 02:55 25 MCG Insulin Human Lispro (HumaLOG) 10 units 1X ONCE 12/18/18 02:00 12/18/18 02:01 DC 12/18/18 02:27 7 UNITS Lactobacillus Rhamnosus (Culturelle) 1 cap BID 12/18/18 21:00 12/19/18 08:50 1 CAP Metoprolol Tartrate (Lopressor) 50 mg 1X ONCE 12/18/18 05:00 12/18/18 05:02 DC 12/18/18 04:46 50 MG Morphine Sulfate (Morphine Sulfate) 2 mg PRN Q2HR PRN 12/18/18 09:00 Ondansetron HCl (Zofran) 4 mg PRN Q6HRS PRN 12/18/18 09:00 12/18/18 14:00 4 MG Piperacillin Sod/ Tazobactam Sod 2.25 gm/Sodium Chloride 50 ml @ 100 mls/hr Q6HRS 12/18/18 12:00 12/19/18 05:28 100 MLS/HR Prochlorperazine Edisylate (Compazine) 10 mg PRN Q6HRS PRN 12/18/18 16:15 12/18/18 16:18 10 MG Sodium Chloride 1,000 ml @ 150 mls/hr Q6H40M 12/17/18 22:30 12/18/18 22:29 DC 12/18/18 18:30 150 MLS/HR Labs: Lab Laboratory Tests Test 12/18/18 11:45 12/18/18 14:04 12/18/18 17:21 12/18/18 21:11 Glucose (Fingerstick) 339 mg/dL (70-99) 271 mg/dL (70-99) 206 mg/dL (70-99) 255 mg/dL (70-99) Test 12/19/18 05:00 12/19/18 08:14 White Blood Count 11.0 x10^3/uL (4.0-11.0) Red Blood Count 3.32 x10^6/uL (3.50-5.40) Hemoglobin 10.4 g/dL (12.0-15.5) Hematocrit 30.4 % (36.0-47.0) Mean Corpuscular Volume 92 fL (79-100) Mean Corpuscular Hemoglobin 31 pg (25-35) Mean Corpuscular Hemoglobin Concent 34 g/dL (31-37) Red Cell Distribution Width 13.3 % (11.5-14.5) Platelet Count 136 x10^3/uL (140-400) Neutrophils (%) (Auto) 91 % (31-73) Lymphocytes (%) (Auto) 5 % (24-48) Monocytes (%) (Auto) 4 % (0-9) Eosinophils (%) (Auto) 1 % (0-3) Basophils (%) (Auto) 0 % (0-3) Neutrophils # (Auto) 10.0 x10^3uL (1.8-7.7) Lymphocytes # (Auto) 0.5 x10^3/uL (1.0-4.8) Monocytes # (Auto) 0.4 x10^3/uL (0.0-1.1) Eosinophils # (Auto) 0.1 x10^3/uL (0.0-0.7) Basophils # (Auto) 0.0 x10^3/uL (0.0-0.2) Sodium Level 135 mmol/L (136-145) Potassium Level 3.2 mmol/L (3.5-5.1) Chloride Level 100 mmol/L (98-107) Carbon Dioxide Level 23 mmol/L (21-32) Anion Gap 12 (6-14) Blood Urea Nitrogen 16 mg/dL (7-20) Creatinine 0.9 mg/dL (0.6-1.0) Estimated GFR (Cockcroft-Gault) 62.6 Glucose Level 236 mg/dL (70-99) Calcium Level 8.3 mg/dL (8.5-10.1) Glucose (Fingerstick) 202 mg/dL (70-99) Objective: Assessment: GNR sepsis with bacteremia POA /8 bottles ID and SHIRIN pending source gi or gu ct a/p possible pyelonephritis UTI N/V/D/Abdo pain DM poorly controlled Plan: Plan of Care DC Zosyn Merrem f/u GNR in BC repeat BC f/u c/s and labs in am cont supportive care d/w RADHA TAMEZ MD December 19, 2018 10:47
[2018-12-19 11:00] VITALS: BP 150/77
[2018-12-19] MEDS: ACETAMINOPHEN/CODEINE 300/30MG TABLET. PO PRN (11:39)
[2018-12-19] MEDS: MEROPENEM 500 MG in IV NORMAL SALINE 50ML 50 ML IV SCH ×2 (11:41→18:02)
--- NOTE | 2018-12-19 12:14 | PDOC ---
[facility] PROGRESS NOTE Chief Complaint Chief Complaint Severe sepsis UTI in a diabetic HONK Increase agap acidosis with mild hyponatremia AK I VMN Sepsis POA-elevated lactate GNR marleny bacteremia 1 out of 4 bottles Language barrier History of Present Illness History of Present Illness Patient seen and examined Discussed with RN and case management She has 7 out of 8 blood cultures positive Vitals Vitals Vital Signs Date Time Temp Pulse Resp B/P (MAP) Pulse Ox O2 Delivery O2 Flow Rate FiO2 12/19/18 11:39 97 Room Air 12/19/18 11:00 102.4 102 18 150/77 (101) 102.4 Physical Exam Physical Exam GENERAL: Alert, oriented, awake female, lying in bed comfortably, in no acute distress, cooperative. HEENT: Normocephalic, atraumatic and anicteric. No thrush. Oral mucosa moist. NECK: Supple. No JVD. No thyromegaly. LUNGS: Clear bilaterally. No wheezing. HEART: S1 and S2. No gallops, murmurs or rubs. ABDOMEN: Soft, nontender and nondistended. No rebound and no guarding. EXTREMITIES: No edema, no cyanosis and no clubbing. NEUROLOGICAL: Alert and oriented x 3, grossly nonfocal. PSYCHIATRIC: Cooperative, appropriate mood and affect. DERMATOLOGIC: Warm, dry. No generalized rash. No skin breakdown noted. General: Alert, Oriented X3, Cooperative, No acute distress Abdomen: Normal bowel sounds, Soft, No tenderness, No hepatosplenomegaly, No masses Extremities: No clubbing, No cyanosis, No edema, Normal pulses, No tenderness/swelling Skin: No rashes, No breakdown, No significant lesion Labs Labs: Laboratory Tests Test 12/18/18 14:04 12/18/18 17:21 12/18/18 21:11 12/19/18 05:00 Glucose (Fingerstick) 271 mg/dL (70-99) 206 mg/dL (70-99) 255 mg/dL (70-99) White Blood Count 11.0 x10^3/uL (4.0-11.0) Red Blood Count 3.32 x10^6/uL (3.50-5.40) Hemoglobin 10.4 g/dL (12.0-15.5) Hematocrit 30.4 % (36.0-47.0) Mean Corpuscular Volume 92 fL (79-100) Mean Corpuscular Hemoglobin 31 pg (25-35) Mean Corpuscular Hemoglobin Concent 34 g/dL (31-37) Red Cell Distribution Width 13.3 % (11.5-14.5) Platelet Count 136 x10^3/uL (140-400) Neutrophils (%) (Auto) 91 % (31-73) Lymphocytes (%) (Auto) 5 % (24-48) Monocytes (%) (Auto) 4 % (0-9) Eosinophils (%) (Auto) 1 % (0-3) Basophils (%) (Auto) 0 % (0-3) Neutrophils # (Auto) 10.0 x10^3uL (1.8-7.7) Lymphocytes # (Auto) 0.5 x10^3/uL (1.0-4.8) Monocytes # (Auto) 0.4 x10^3/uL (0.0-1.1) Eosinophils # (Auto) 0.1 x10^3/uL (0.0-0.7) Basophils # (Auto) 0.0 x10^3/uL (0.0-0.2) Sodium Level 135 mmol/L (136-145) Potassium Level 3.2 mmol/L (3.5-5.1) Chloride Level 100 mmol/L (98-107) Carbon Dioxide Level 23 mmol/L (21-32) Anion Gap 12 (6-14) Blood Urea Nitrogen 16 mg/dL (7-20) Creatinine 0.9 mg/dL (0.6-1.0) Estimated GFR (Cockcroft-Gault) 62.6 Glucose Level 236 mg/dL (70-99) Calcium Level 8.3 mg/dL (8.5-10.1) Test 12/19/18 08:14 12/19/18 11:14 Glucose (Fingerstick) 202 mg/dL (70-99) 246 mg/dL (70-99) Review of Systems Review of Systems Complains of weakness and dysuria Assessment and Plan Assessmemt and Plan Problems Medical Problems: (1) Acute gastroenteritis Status: Acute (2) Hyperglycemia Status: Acute (3) Pyelonephritis Status: Acute (4) Renal insufficiency Status: Acute (5) Sepsis Status: Acute (6) Uncontrolled diabetes mellitus Status: Acute Severe sepsis UTI in a diabetic HONK Increase agap acidosis with mild hyponatremia AK I VMN Sepsis POA-elevated lactate GNR marleny bacteremia 1 out of 4 bottles Language barrier PLAN: Aggressive IVF to address HON K, AK I and hyponatremia ID consult pending IV antibiotics Sliding-scale insulin for now-check [id number] resume metformin because of AK I Treat the UTI, wait for urine cx and ff up BCs Supportive meds Discussed with RN and infectious disease Total time 32 minutes Comment Review of Relevant I have reviewed the following items marisel (where applicable) has been applied. Labs Laboratory Tests Test 12/17/18 19:15 12/17/18 20:25 12/17/18 22:02 12/18/18 00:55 Urine Collection Type Unknown Urine Color Yellow Urine Clarity Clear Urine pH 6.0 Urine Specific [place] 1.015 Urine Protein 100 mg/dL (NEG-TRACE) Urine Glucose (UA) >=1000 mg/dL (NEG) Urine Ketones (Stick) Negative mg/dL (NEG) Urine Blood Moderate (NEG) Urine Nitrite Positive (NEG) Urine Bilirubin Negative (NEG) Urine Urobilinogen Dipstick 0.2 mg/dL (0.2 mg/dL) Urine Leukocyte Esterase Moderate (NEG) Urine RBC 6-10 /HPF (0-2) Urine WBC Tntc /HPF (0-4) Urine Squamous Epithelial Cells Few /LPF Urine Bacteria Many /HPF (0-FEW) White Blood Count 16.3 x10^3/uL (4.0-11.0) Red Blood Count 4.07 x10^6/uL (3.50-5.40) Hemoglobin 12.7 g/dL (12.0-15.5) Hematocrit 37.2 % (36.0-47.0) Mean Corpuscular Volume 91 fL (79-100) Mean Corpuscular Hemoglobin 31 pg (25-35) Mean Corpuscular Hemoglobin Concent 34 g/dL (31-37) Red Cell Distribution Width 13.4 % (11.5-14.5) Platelet Count 169 x10^3/uL (140-400) Neutrophils (%) (Auto) 92 % (31-73) Lymphocytes (%) (Auto) 3 % (24-48) Monocytes (%) (Auto) 5 % (0-9) Eosinophils (%) (Auto) 0 % (0-3) Basophils (%) (Auto) 0 % (0-3) Neutrophils # (Auto) 15.0 x10^3uL (1.8-7.7) Lymphocytes # (Auto) 0.4 x10^3/uL (1.0-4.8) Monocytes # (Auto) 0.7 x10^3/uL (0.0-1.1) Eosinophils # (Auto) 0.0 x10^3/uL (0.0-0.7) Basophils # (Auto) 0.1 x10^3/uL (0.0-0.2) Segmented Neutrophils % 63 % (35-66) Band Neutrophils % 30 % (0-9) Lymphocytes % 3 % (24-48) Monocytes % 4 % (0-10) Platelet Estimate Adequate (ADEQUATE) Prothrombin Time 14.3 SEC (11.7-14.0) Prothromb Time International Ratio 1.1 (0.8-1.1) Sodium Level 131 mmol/L (136-145) Potassium Level 4.5 mmol/L (3.5-5.1) Chloride Level 92 mmol/L (98-107) Carbon Dioxide Level 23 mmol/L (21-32) Anion Gap 16 (6-14) Blood Urea Nitrogen 40 mg/dL (7-20) Creatinine 1.6 mg/dL (0.6-1.0) Estimated GFR (Cockcroft-Gault) 32.2 BUN/Creatinine Ratio 25 (6-20) Glucose Level 398 mg/dL (70-99) Lactic Acid Level 2.7 mmol/L (0.4-2.0) Calcium Level 9.3 mg/dL (8.5-10.1) Total Bilirubin 0.6 mg/dL (0.2-1.0) Aspartate Amino Transf (AST/SGOT) 21 U/L (15-37) Alanine Aminotransferase (ALT/SGPT) 20 U/L (14-59) Alkaline Phosphatase 87 U/L (46-116) Creatine Kinase 36 U/L (26-192) Troponin I Quantitative < 0.017 ng/mL (0.000-0.055) Total Protein 7.5 g/dL (6.4-8.2) Albumin 3.4 g/dL (3.4-5.0) Albumin/Globulin Ratio 0.8 (1.0-1.7) Lipase 103 U/L (73-393) Glucose (Fingerstick) 360 mg/dL (70-99) 352 mg/dL (70-99) Test 12/18/18 02:20 12/18/18 02:30 12/18/18 04:29 12/18/18 07:09 Glucose (Fingerstick) 310 mg/dL (70-99) 242 mg/dL (70-99) 222 mg/dL (70-99) Lactic Acid Level 1.4 mmol/L (0.4-2.0) Test 12/18/18 11:45 12/18/18 14:04 12/18/18 17:21 12/18/18 21:11 Glucose (Fingerstick) 339 mg/dL (70-99) 271 mg/dL (70-99) 206 mg/dL (70-99) 255 mg/dL (70-99) Test 12/19/18 05:00 12/19/18 08:14 12/19/18 11:14 White Blood Count 11.0 x10^3/uL (4.0-11.0) Red Blood Count 3.32 x10^6/uL (3.50-5.40) Hemoglobin 10.4 g/dL (12.0-15.5) Hematocrit 30.4 % (36.0-47.0) Mean Corpuscular Volume 92 fL (79-100) Mean Corpuscular Hemoglobin 31 pg (25-35) Mean Corpuscular Hemoglobin Concent 34 g/dL (31-37) Red Cell Distribution Width 13.3 % (11.5-14.5) Platelet Count 136 x10^3/uL (140-400) Neutrophils (%) (Auto) 91 % (31-73) Lymphocytes (%) (Auto) 5 % (24-48) Monocytes (%) (Auto) 4 % (0-9) Eosinophils (%) (Auto) 1 % (0-3) Basophils (%) (Auto) 0 % (0-3) Neutrophils # (Auto) 10.0 x10^3uL (1.8-7.7) Lymphocytes # (Auto) 0.5 x10^3/uL (1.0-4.8) Monocytes # (Auto) 0.4 x10^3/uL (0.0-1.1) Eosinophils # (Auto) 0.1 x10^3/uL (0.0-0.7) Basophils # (Auto) 0.0 x10^3/uL (0.0-0.2) Sodium Level 135 mmol/L (136-145) Potassium Level 3.2 mmol/L (3.5-5.1) Chloride Level 100 mmol/L (98-107) Carbon Dioxide Level 23 mmol/L (21-32) Anion Gap 12 (6-14) Blood Urea Nitrogen 16 mg/dL (7-20) Creatinine 0.9 mg/dL (0.6-1.0) Estimated GFR (Cockcroft-Gault) 62.6 Glucose Level 236 mg/dL (70-99) Calcium Level 8.3 mg/dL (8.5-10.1) Glucose (Fingerstick) 202 mg/dL (70-99) 246 mg/dL (70-99) Laboratory Tests Test 12/18/18 14:04 12/18/18 17:21 12/18/18 21:11 12/19/18 05:00 Glucose (Fingerstick) 271 mg/dL (70-99) 206 mg/dL (70-99) 255 mg/dL (70-99) White Blood Count 11.0 x10^3/uL (4.0-11.0) Red Blood Count 3.32 x10^6/uL (3.50-5.40) Hemoglobin 10.4 g/dL (12.0-15.5) Hematocrit 30.4 % (36.0-47.0) Mean Corpuscular Volume 92 fL (79-100) Mean Corpuscular Hemoglobin 31 pg (25-35) Mean Corpuscular Hemoglobin Concent 34 g/dL (31-37) Red Cell Distribution Width 13.3 % (11.5-14.5) Platelet Count 136 x10^3/uL (140-400) Neutrophils (%) (Auto) 91 % (31-73) Lymphocytes (%) (Auto) 5 % (24-48) Monocytes (%) (Auto) 4 % (0-9) Eosinophils (%) (Auto) 1 % (0-3) Basophils (%) (Auto) 0 % (0-3) Neutrophils # (Auto) 10.0 x10^3uL (1.8-7.7) Lymphocytes # (Auto) 0.5 x10^3/uL (1.0-4.8) Monocytes # (Auto) 0.4 x10^3/uL (0.0-1.1) Eosinophils # (Auto) 0.1 x10^3/uL (0.0-0.7) Basophils # (Auto) 0.0 x10^3/uL (0.0-0.2) Sodium Level 135 mmol/L (136-145) Potassium Level 3.2 mmol/L (3.5-5.1) Chloride Level 100 mmol/L (98-107) Carbon Dioxide Level 23 mmol/L (21-32) Anion Gap 12 (6-14) Blood Urea Nitrogen 16 mg/dL (7-20) Creatinine 0.9 mg/dL (0.6-1.0) Estimated GFR (Cockcroft-Gault) 62.6 Glucose Level 236 mg/dL (70-99) Calcium Level 8.3 mg/dL (8.5-10.1) Test 12/19/18 08:14 12/19/18 11:14 Glucose (Fingerstick) 202 mg/dL (70-99) 246 mg/dL (70-99) Microbiology 12/18/18 Blood Culture - Final, Complete Medications Current Medications Sodium Chloride 1,000 ml @ 1,000 mls/hr Q1H IV Last administered on 12/17/18at 21:10; Start 12/17/18 at 20:15; Stop 12/17/18 at 21:14; Status DC Fentanyl Citrate (Fentanyl 2ml Vial) 25 mcg 1X ONCE IV Last administered on 12/17/18at 21:10; Start 12/17/18 at 20:15; Stop 12/17/18 at 20:52; Status DC Ondansetron HCl (Zofran) 4 mg 1X ONCE IV Last administered on 12/17/18at 21:11; Start 12/17/18 at 20:15; Stop 12/17/18 at 20:52; Status DC Ceftriaxone Sodium (Rocephin) 1 gm 1X ONCE IVP Last administered on 12/17/18at 21:45; Start 12/17/18 at 22:00; Stop 12/17/18 at 22:01; Status DC Sodium Chloride 1,000 ml @ 1,000 mls/hr 1X ONCE IV Last administered on 12/17/18at 21:47; Start 12/17/18 at 22:00; Stop 12/17/18 at 22:59; Status DC Ondansetron HCl (Zofran) 4 mg PRN Q8HRS PRN IV NAUSEA/VOMITING 1ST CHOICE Last administered on 12/18/18at 04:30; Start 12/17/18 at 22:15; Stop 12/18/18 at 08:49; Status DC Sodium Chloride 1,000 ml @ 150 mls/hr Q6H40M IV Last administered on 12/18/18at 18:30; Start 12/17/18 at 22:30; Stop 12/18/18 at 22:29; Status DC Dextrose (Dextrose 50%-Water Syringe) 12.5 gm PRN Q15MIN PRN IV SEE COMMENTS; Start 12/17/18 at 22:15; Stop 12/18/18 at 08:51; Status DC Insulin Human Lispro (HumaLOG) 0-9 UNITS TIDWMEALS SQ ; Start 12/18/18 at 08:00; Status UNV Dextrose (Dextrose 50%-Water Syringe) 12.5 gm PRN Q15MIN PRN IV SEE COMMENTS; Start 12/18/18 at 01:30; Status UNV Insulin Human Lispro (HumaLOG) 0-9 UNITS TIDWMEALS SQ Last administered on 12/19/18at 11:47; Start 12/18/18 at 08:00 Dextrose (Dextrose 50%-Water Syringe) 12.5 gm PRN Q15MIN PRN IV SEE COMMENTS; Start 12/18/18 at 01:45 Insulin Human Lispro (HumaLOG) 10 units 1X ONCE SQ Last administered on 12/18/18at 02:27; Start 12/18/18 at 02:00; Stop 12/18/18 at 02:01; Status DC Fentanyl Citrate (Fentanyl 2ml Vial) 25 mcg PRN Q2HR PRN IV SEVERE PAIN Last administered on 12/18/18at 02:55; Start 12/18/18 at 02:45 Metoprolol Tartrate (Lopressor) 50 mg BID PO Last administered on 12/19/18at 08:50; Start 12/18/18 at 09:00 Metoprolol Tartrate (Lopressor) 50 mg 1X ONCE PO Last administered on 12/18/18 04:46; Start 12/18/18 at 05:00; Stop 12/18/18 at 05:02; Status DC Acetaminophen (Tylenol) 650 mg PRN Q6HRS PRN PO mild temp/pain Last administered on 12/18/18 04:47; Start 12/18/18 at 04:45; Stop 12/18/18 at 08:51; Status DC Ondansetron HCl (Zofran) 4 mg PRN Q6HRS PRN IV NAUSEA/VOMITING 1ST CHOICE Last administered on 12/18/18 14:00; Start 12/18/18 at 09:00 Acetaminophen (Tylenol) 500 mg PRN Q6HRS PRN PO MILD PAIN / TEMP Last administered on 12/19/18 11:39; Start 12/18/18 at 09:00 Acetaminophen/ Codeine Phosphate (Tylenol #3) 1 tab PRN Q6HRS PRN PO MODERATE PAIN Last administered on 12/19/18 11:39; Start 12/18/18 at 09:00 Ceftriaxone Sodium (Rocephin) 1 gm Q24H IVP ; Start 12/18/18 at 21:00; Stop 12/18/18 at 21:00; Status DC Morphine Sulfate (Morphine Sulfate) 2 mg PRN Q2HR PRN IV MODERATE PAIN; Start 12/18/18 at 09:00 Diphenhydramine HCl (Benadryl) 25 mg PRN QHS PRN PO INSOMNIA; Start 12/18/18 at 09:00 Piperacillin Sod/ Tazobactam Sod 2.25 gm/Sodium Chloride 50 ml @ 100 mls/hr Q6HRS IV Last administered on 12/19/18 05:28; Start 12/18/18 at 12:00; Stop 12/19/18 at 10:48; Status DC Lactobacillus Rhamnosus (Culturelle) 1 cap BID PO Last administered on 12/19/18at 08:50; Start 12/18/18 at 21:00 Prochlorperazine Edisylate (Compazine) 10 mg PRN Q6HRS PRN IV NAUSEA/VOMITING Last administered on 12/18/18 16:18; Start 12/18/18 at 16:15 Meropenem 500 mg/ Sodium Chloride 50 ml @ 100 mls/hr Q6HRS IV Last administered on 12/19/18at 11:41; Start 12/19/18 at 12:00 Vitals/I & O Vital Sign - Last 24 Hours 12/18/18 12/18/18 12/18/18 12/18/18 15:09 15:13 16:09 16:24 Temp 103.0 100.2 103.0 100.2 Pulse 125 Resp 18 B/P (MAP) 183/97 (125) Pulse Ox 99 97 97 O2 Delivery Room Air Room Air Room Air 12/18/18 12/18/18 12/18/18 12/18/18 19:00 19:37 20:35 23:00 Temp 97.9 97.9 97.9 97.9 Pulse 90 90 78 Resp 16 16 B/P (MAP) 120/62 (81) 120/60 141/72 (95) Pulse Ox 97 97 O2 Delivery Room Air Room Air Room Air 12/19/18 12/19/18 12/19/18 12/19/18 00:30 03:00 07:00 08:00 Temp 101.3 98.5 99.8 101.3 98.5 99.8 Pulse 109 108 Resp 18 16 B/P (MAP) 129/62 (84) 160/87 (111) Pulse Ox 93 97 O2 Delivery Room Air Room Air Room Air 12/19/18 12/19/18 12/19/18 08:50 11:00 11:39 Temp 102.4 102.4 Pulse 108 102 Resp 18 B/P (MAP) 160/87 150/77 (101) Pulse Ox 95 97 O2 Delivery Room Air Room Air Intake and Output 12/18/18 12/18/18 12/19/18 15:00 23:00 07:00 Intake Total 450 ml 300 ml Balance 450 ml 300 ml CASTLE,NIAL K III DO December 19, 2018 12:13
[2018-12-19 12:17] LABS: HEMOGLOBIN A1C 9.7 % (4.8-5.6)
[2018-12-19 15:00] VITALS: BP 129/70
[2018-12-19 19:00] VITALS: BP 203/106
[2018-12-19 23:04] VITALS: BP 147/72
[2018-12-20] MEDS: MEROPENEM 500 MG in IV NORMAL SALINE 50ML 50 ML IV SCH ×5 (02:03→23:51)
[2018-12-20 03:00] VITALS: BP 162/89
[2018-12-20 07:00] VITALS: BP 165/83
--- NOTE | 2018-12-20 09:15 | PDOC ---
Infectious Disease Note Subjective: Subjective Pt says she is ok still has some abdominal pain fevers but improving no n/v feels a little better grandson at bedside feather edger ROS: ROS Negative except for above. Vital Signs: Vital Signs Vital Signs Date Time Temp Pulse Resp B/P (MAP) Pulse Ox O2 Delivery O2 Flow Rate FiO2 12/20/18 07:00 101.0 114 16 165/83 (110) 96 Room Air 101.0 Physical Exam: PHYSICAL EXAM GENERAL: Alert, oriented, awake female, lying in bed comfortably, in no acute distress, cooperative. HEENT: Normocephalic, atraumatic and anicteric. No thrush. Oral mucosa moist. NECK: Supple. No JVD. No thyromegaly. LUNGS: Clear bilaterally. No wheezing. HEART: S1 and S2. No gallops, murmurs or rubs. ABDOMEN: Soft, nontender and nondistended. No rebound and no guarding. EXTREMITIES: No edema, no cyanosis and no clubbing. NEUROLOGICAL: Alert and oriented x 3, grossly nonfocal. PSYCHIATRIC: Cooperative, appropriate mood and affect. DERMATOLOGIC: Warm, dry. No generalized rash. No skin breakdown noted. Medications: Inpatient Meds: Current Medications Medications (Trade) Dose Ordered Sig/Gareth Start Time Stop Time Status Last Admin Dose Admin Acetaminophen (Tylenol) 500 mg PRN Q6HRS PRN 12/18/18 09:00 12/19/18 20:20 500 MG Acetaminophen/ Codeine Phosphate (Tylenol #3) 1 tab PRN Q6HRS PRN 12/18/18 09:00 12/19/18 11:39 1 TAB Ceftriaxone Sodium (Rocephin) 1 gm Q24H 12/18/18 21:00 12/18/18 21:00 DC Dextrose (Dextrose 50%-Water Syringe) 12.5 gm PRN Q15MIN PRN 12/18/18 01:45 Diphenhydramine HCl (Benadryl) 25 mg PRN QHS PRN 12/18/18 09:00 Fentanyl Citrate (Fentanyl 2ml Vial) 25 mcg PRN Q2HR PRN 12/18/18 02:45 12/18/18 02:55 25 MCG Insulin Human Lispro (HumaLOG) 10 units 1X ONCE 12/18/18 02:00 12/18/18 02:01 DC 12/18/18 02:27 7 UNITS Lactobacillus Rhamnosus (Culturelle) 1 cap BID 12/18/18 21:00 12/19/18 20:20 1 CAP Meropenem 500 mg/ Sodium Chloride 50 ml @ 100 mls/hr Q6HRS 12/19/18 12:00 12/20/18 05:55 100 MLS/HR Metoprolol Tartrate (Lopressor) 50 mg 1X ONCE 12/18/18 05:00 12/18/18 05:02 DC 12/18/18 04:46 50 MG Morphine Sulfate (Morphine Sulfate) 2 mg PRN Q2HR PRN 12/18/18 09:00 Ondansetron HCl (Zofran) 4 mg PRN Q6HRS PRN 12/18/18 09:00 12/18/18 14:00 4 MG Piperacillin Sod/ Tazobactam Sod 2.25 gm/Sodium Chloride 50 ml @ 100 mls/hr Q6HRS 12/18/18 12:00 12/19/18 10:48 DC 12/19/18 05:28 100 MLS/HR Prochlorperazine Edisylate (Compazine) 10 mg PRN Q6HRS PRN 12/18/18 16:15 12/18/18 16:18 10 MG Sodium Chloride 1,000 ml @ 150 mls/hr Q6H40M 12/17/18 22:30 12/18/18 22:29 DC 12/18/18 18:30 150 MLS/HR Labs: Lab Laboratory Tests Test 12/19/18 11:14 12/19/18 16:55 12/19/18 19:17 12/20/18 07:02 Glucose (Fingerstick) 246 mg/dL (70-99) 240 mg/dL (70-99) 228 mg/dL (70-99) 169 mg/dL (70-99) Objective: Assessment: GNR sepsis with bacteremia POA 01/27 bottles ID and SHIRIN still pending sourceGU or GI ct a/p possible pyelonephritis UTI N/V/D/Abdo pain DM poorly controlled Plan: Plan of Care Merrem f/u GNR in BC repeat BC f/u c/s and labs in am cont supportive care d/w RADHA TAMEZ MD December 20, 2018 09:15
[2018-12-20] MEDS: LACTOBACILLUS RHAMNOSUS GG 1 CAPSULE. PO SCH ×2 (09:31→21:06)
[2018-12-20] MEDS: METOPROLOL TART IMMED RELEASE 50 MG TABLET. PO SCH ×2 (09:31→21:07)
[2018-12-20] MEDS: ACETAMINOPHEN 500 MG TABLET PO PRN (09:32)
[2018-12-20] MEDS: IV NORMAL SALINE 1000ML BAG 1,000 ML IV SCH ×2 (09:32→23:51)
[2018-12-20] MEDS: INSULIN LISPRO 300 UNITS/3 ML INSULN.PEN. SQ SCH ×3 (09:37→18:22)
--- NOTE | 2018-12-20 10:10 | NUR ---
SW following pt. ID following and No discharge recommendations noted at this time. Will continue to evaluate needs.
--- NOTE | 2018-12-20 10:53 | PDOC ---
[employer] PROGRESS NOTE Chief Complaint Chief Complaint Severe sepsis UTI in a diabetic [facility] Increase agap acidosis with mild hyponatremia AK I VMN Sepsis POA-elevated lactate GNR marleny bacteremia 1 out of 4 bottles Language barrier History of Present Illness History of Present Illness Patient seen and examined Grandson present Discussed with RN Vitals Vitals Vital Signs Date Time Temp Pulse Resp B/P (MAP) Pulse Ox O2 Delivery O2 Flow Rate FiO2 12/20/18 09:31 114 165/83 12/20/18 07:00 101.0 16 96 Room Air 101.0 Physical Exam Physical Exam GENERAL: Alert, oriented, awake female, lying in bed comfortably, in no acute distress, cooperative. HEENT: Normocephalic, atraumatic and anicteric. No thrush. Oral mucosa moist. NECK: Supple. No JVD. No thyromegaly. LUNGS: Clear bilaterally. No wheezing. HEART: S1 and S2. No gallops, murmurs or rubs. ABDOMEN: Soft, nontender and nondistended. No rebound and no guarding. EXTREMITIES: No edema, no cyanosis and no clubbing. NEUROLOGICAL: Alert and oriented x 3, grossly nonfocal. PSYCHIATRIC: Cooperative, appropriate mood and affect. DERMATOLOGIC: Warm, dry. No generalized rash. No skin breakdown noted. General: Alert, Oriented X3, Cooperative, No acute distress Heart: Regular rate, Normal S1, Normal S2 Lungs: Clear Abdomen: Normal bowel sounds, Soft, No tenderness, No hepatosplenomegaly, No masses Extremities: No clubbing, No cyanosis, No edema, Normal pulses, No tenderness/swelling Skin: No rashes, No breakdown, No significant lesion Labs Labs: Laboratory Tests Test 12/19/18 11:14 12/19/18 16:55 12/19/18 19:17 12/20/18 07:02 Glucose (Fingerstick) 246 mg/dL (70-99) 240 mg/dL (70-99) 228 mg/dL (70-99) 169 mg/dL (70-99) Review of Systems Review of Systems No new complaints Assessment and Plan Assessmemt and Plan Problems Medical Problems: (1) Acute gastroenteritis Status: Acute (2) Hyperglycemia Status: Acute (3) Pyelonephritis Status: Acute (4) Renal insufficiency Status: Acute (5) Sepsis Status: Acute (6) Uncontrolled diabetes mellitus Status: Acute Severe sepsis UTI in a diabetic [facility] Increase agap acidosis with mild hyponatremia AK I VMN Sepsis POA-elevated lactate GNR marleny bacteremia 1 out of 4 bottles Language barrier Plan IV antibiotics Frequent labs Home meds DVT prophylaxis Full code Await further subspecialist input Comment Review of Relevant I have reviewed the following items marisel (where applicable) has been applied. Labs Laboratory Tests Test 12/18/18 11:45 12/18/18 14:04 12/18/18 17:21 12/18/18 21:11 Glucose (Fingerstick) 339 mg/dL (70-99) 271 mg/dL (70-99) 206 mg/dL (70-99) 255 mg/dL (70-99) Test 12/19/18 05:00 12/19/18 08:14 12/19/18 11:14 12/19/18 16:55 White Blood Count 11.0 x10^3/uL (4.0-11.0) Red Blood Count 3.32 x10^6/uL (3.50-5.40) Hemoglobin 10.4 g/dL (12.0-15.5) Hematocrit 30.4 % (36.0-47.0) Mean Corpuscular Volume 92 fL (79-100) Mean Corpuscular Hemoglobin 31 pg (25-35) Mean Corpuscular Hemoglobin Concent 34 g/dL (31-37) Red Cell Distribution Width 13.3 % (11.5-14.5) Platelet Count 136 x10^3/uL (140-400) Neutrophils (%) (Auto) 91 % (31-73) Lymphocytes (%) (Auto) 5 % (24-48) Monocytes (%) (Auto) 4 % (0-9) Eosinophils (%) (Auto) 1 % (0-3) Basophils (%) (Auto) 0 % (0-3) Neutrophils # (Auto) 10.0 x10^3uL (1.8-7.7) Lymphocytes # (Auto) 0.5 x10^3/uL (1.0-4.8) Monocytes # (Auto) 0.4 x10^3/uL (0.0-1.1) Eosinophils # (Auto) 0.1 x10^3/uL (0.0-0.7) Basophils # (Auto) 0.0 x10^3/uL (0.0-0.2) Sodium Level 135 mmol/L (136-145) Potassium Level 3.2 mmol/L (3.5-5.1) Chloride Level 100 mmol/L (98-107) Carbon Dioxide Level 23 mmol/L (21-32) Anion Gap 12 (6-14) Blood Urea Nitrogen 16 mg/dL (7-20) Creatinine 0.9 mg/dL (0.6-1.0) Estimated GFR (Cockcroft-Gault) 62.6 Glucose Level 236 mg/dL (70-99) Calcium Level 8.3 mg/dL (8.5-10.1) Glucose (Fingerstick) 202 mg/dL (70-99) 246 mg/dL (70-99) 240 mg/dL (70-99) Test 12/19/18 19:17 12/20/18 07:02 Glucose (Fingerstick) 228 mg/dL (70-99) 169 mg/dL (70-99) Laboratory Tests Test 12/19/18 11:14 12/19/18 16:55 12/19/18 19:17 12/20/18 07:02 Glucose (Fingerstick) 246 mg/dL (70-99) 240 mg/dL (70-99) 228 mg/dL (70-99) 169 mg/dL (70-99) Microbiology 12/18/18 Blood Culture - Final, Complete 12/17/18 Urine Culture - Preliminary, Resulted 12/17/18 Urine Culture Result 1 (SHIRIN) - Preliminary, Resulted Medications Current Medications Sodium Chloride 1,000 ml @ 1,000 mls/hr Q1H IV Last administered on 12/17/18at 21:10; Start 12/17/18 at 20:15; Stop 12/17/18 at 21:14; Status DC Fentanyl Citrate (Fentanyl 2ml Vial) 25 mcg 1X ONCE IV Last administered on 12/17/18at 21:10; Start 12/17/18 at 20:15; Stop 12/17/18 at 20:52; Status DC Ondansetron HCl (Zofran) 4 mg 1X ONCE IV Last administered on 12/17/18at 21:11; Start 12/17/18 at 20:15; Stop 12/17/18 at 20:52; Status DC Ceftriaxone Sodium (Rocephin) 1 gm 1X ONCE IVP Last administered on 12/17/18at 21:45; Start 12/17/18 at 22:00; Stop 12/17/18 at 22:01; Status DC Sodium Chloride 1,000 ml @ 1,000 mls/hr 1X ONCE IV Last administered on 12/17/18at 21:47; Start 12/17/18 at 22:00; Stop 12/17/18 at 22:59; Status DC Ondansetron HCl (Zofran) 4 mg PRN Q8HRS PRN IV NAUSEA/VOMITING 1ST CHOICE Last administered on 12/18/18at 04:30; Start 12/17/18 at 22:15; Stop 12/18/18 at 08:49; Status DC Sodium Chloride 1,000 ml @ 150 mls/hr Q6H40M IV Last administered on 12/18/18at 18:30; Start 12/17/18 at 22:30; Stop 12/18/18 at 22:29; Status DC Dextrose (Dextrose 50%-Water Syringe) 12.5 gm PRN Q15MIN PRN IV SEE COMMENTS; Start 12/17/18 at 22:15; Stop 12/18/18 at 08:51; Status DC Insulin Human Lispro (HumaLOG) 0-9 UNITS TIDWMEALS SQ ; Start 12/18/18 at 08:00; Status UNV Dextrose (Dextrose 50%-Water Syringe) 12.5 gm PRN Q15MIN PRN IV SEE COMMENTS; Start 12/18/18 at 01:30; Status UNV Insulin Human Lispro (HumaLOG) 0-9 UNITS TIDWMEALS SQ Last administered on 12/20/18at 09:37; Start 12/18/18 at 08:00 Dextrose (Dextrose 50%-Water Syringe) 12.5 gm PRN Q15MIN PRN IV SEE COMMENTS; Start 12/18/18 at 01:45 Insulin Human Lispro (HumaLOG) 10 units 1X ONCE SQ Last administered on 12/18/18at 02:27; Start 12/18/18 at 02:00; Stop 12/18/18 at 02:01; Status DC Fentanyl Citrate (Fentanyl 2ml Vial) 25 mcg PRN Q2HR PRN IV SEVERE PAIN Last administered on 12/18/18at 02:55; Start 12/18/18 at 02:45 Metoprolol Tartrate (Lopressor) 50 mg BID PO Last administered on 12/20/18 09:31; Start 12/18/18 at 09:00 Metoprolol Tartrate (Lopressor) 50 mg 1X ONCE PO Last administered on 12/18/18at 04:46; Start 12/18/18 at 05:00; Stop 12/18/18 at 05:02; Status DC Acetaminophen (Tylenol) 650 mg PRN Q6HRS PRN PO mild temp/pain Last administered on 12/18/18at 04:47; Start 12/18/18 at 04:45; Stop 12/18/18 at 08:51; Status DC Ondansetron HCl (Zofran) 4 mg PRN Q6HRS PRN IV NAUSEA/VOMITING 1ST CHOICE Last administered on 12/18/18at 14:00; Start 12/18/18 at 09:00 Acetaminophen (Tylenol) 500 mg PRN Q6HRS PRN PO MILD PAIN / TEMP Last administe red on 12/20/18at 09:32; Start 12/18/18 at 09:00 Acetaminophen/ Codeine Phosphate (Tylenol #3) 1 tab PRN Q6HRS PRN PO MODERATE P AIN Last administered on 12/19/18at 11:39; Start 12/18/18 at 09:00 Ceftriaxone Sodium (Rocephin) 1 gm Q24H IVP ; Start 12/18/18 at 21:00; Stop 12/18/18 at 21:00; Status DC Morphine Sulfate (Morphine Sulfate) 2 mg PRN Q2HR PRN IV MODERATE PAIN; Start 12/18/18 at 09:00 Diphenhydramine HCl (Benadryl) 25 mg PRN QHS PRN PO INSOMNIA; Start 12/18/18 at 09:00 Piperacillin Sod/ Tazobactam Sod 2.25 gm/Sodium Chloride 50 ml @ 100 mls/hr Q6HRS IV Last administered on 12/19/18at 05:28; Start 12/18/18 at 12:00; Stop 12/19/18 at 10:48; Status DC Lactobacillus Rhamnosus (Culturelle) 1 cap BID PO Last administered on 12/20/18at 09:31; Start 12/18/18 at 21:00 Prochlorperazine Edisylate (Compazine) 10 mg PRN Q6HRS PRN IV NAUSEA/VOMITING 2ND CHOICE Last administered on 12/18/18at 16:18; Start 12/18/18 at 16:15 Meropenem 500 mg/ Sodium Chloride 50 ml @ 100 mls/hr Q6HRS IV Last administered on 12/20/18at 05:55; Start 12/19/18 at 12:00 Sodium Chloride 1,000 ml @ 75 mls/hr [id number] IV Last administered on 12/20/18at 09:32; Start 12/20/18 at 09:30 Vitals/I & O Vital Sign - Last 24 Hours 12/19/18 12/19/18 12/19/18 12/19/18 11:00 11:39 12:39 15:00 Temp 102.4 98.6 102.4 98.6 Pulse 102 85 Resp 18 18 B/P (MAP) 150/77 (101) 129/70 (89) Pulse Ox 95 97 97 96 O2 Delivery Room Air Room Air Room Air Room Air 12/19/18 12/19/18 12/19/18 12/19/18 19:00 20:00 20:21 23:04 Temp 102.5 100.0 102.5 100.0 Pulse 135 143 88 Resp 18 16 B/P (MAP) 203/106 (138) 129/70 147/72 (97) Pulse Ox 97 95 O2 Delivery Room Air Room Air Room Air 12/20/18 12/20/18 12/20/18 03:00 07:00 09:31 Temp 98.5 101.0 98.5 101.0 Pulse 95 114 114 Resp 16 16 B/P (MAP) 162/89 (113) 165/83 (110) 165/83 Pulse Ox 97 96 O2 Delivery Room Air Room Air Intake and Output 12/19/18 12/19/18 12/20/18 14:59 22:59 06:59 Intake Total 320 ml 300 ml 400 ml Balance 320 ml 300 ml 400 ml GWYN SCANLON III DO December 20, 2018 10:52
[2018-12-20 11:00] VITALS: BP 110/64
[2018-12-20 11:11] LABS: BASO % 0 % (0-3); EOS % 1 % (0-3); HEMATOCRIT 30.3 % (36.0-47.0); HEMOGLOBIN 10.6 g/dL (12.0-15.5); LYMPH # 0.7 x10^3/uL (1.0-4.8); LYMPH % 11 % (24-48); MEAN CORPUSCULAR HEMOGLOBIN 31 pg (25-35); MEAN CORPUSCULAR HGB CONC 35 g/dL (31-37); MEAN CORPUSCULAR VOLUME 90 fL (79-100); MONO # 0.6 x10^3/uL (0.0-1.1); MONO % 9 % (0-9); NEUT # 5.3 x10^3uL (1.8-7.7); NEUT % 80 % (31-73); PLATELET COUNT 159 x10^3/uL (140-400); RED BLOOD COUNT 3.37 x10^6/uL (3.50-5.40); WHITE BLOOD COUNT 6.7 x10^3/uL (4.0-11.0)
[2018-12-20 11:29] LABS: ALBUMIN 2.3 g/dL (3.4-5.0); ALBUMIN/GLOBULIN RATIO 0.6 (1.0-1.7); CALCIUM 8.6 mg/dL (8.5-10.1); CREATININE 0.8 mg/dL (0.6-1.0); GFR 71.8; TOTAL BILIRUBIN 0.6 mg/dL (0.2-1.0); TOTAL PROTEIN 6.2 g/dL (6.4-8.2)
[2018-12-20 11:33] LABS: POTASSIUM 2.8 mmol/L (3.5-5.1)
--- NOTE | 2018-12-20 11:45 | NUR ---
Received call from [facility] Velazquez in lab with K 2.8. Called Dr Dai and received orders.
[2018-12-20] MEDS ORDERED: POTASSIUM CHLORIDE 20 MEQ TABLET.ER. PO ONE (12:30)
[2018-12-20 15:00] VITALS: BP 179/85
[2018-12-20 19:00] VITALS: BP_SYST 170; BP_SYST 197; BP_DIAS 88; BP_DIAS 98
[2018-12-20 23:00] VITALS: BP 162/77
[2018-12-21 03:57] VITALS: BP 169/79
[2018-12-21] MEDS: MEROPENEM 500 MG in IV NORMAL SALINE 50ML 50 ML IV SCH ×3 (06:12→17:38)
[2018-12-21 07:00] VITALS: BP 163/86
[2018-12-21] MEDS: LACTOBACILLUS RHAMNOSUS GG 1 CAPSULE. PO SCH ×2 (08:05→20:45)
[2018-12-21] MEDS: METOPROLOL TART IMMED RELEASE 50 MG TABLET. PO SCH ×2 (08:13→20:45)
[2018-12-21] MEDS: INSULIN LISPRO 300 UNITS/3 ML INSULN.PEN. SQ SCH ×3 (08:14→17:36)
[2018-12-21 11:06] VITALS: BP 168/84
--- NOTE | 2018-12-21 11:12 | PDOC ---
[employer] PROGRESS NOTE Chief Complaint Chief Complaint Severe sepsis UTI in a diabetic [facility] Increase agap acidosis with mild hyponatremia AK I VMN Sepsis POA-elevated lactate GNR marleny bacteremia 1 out of 4 bottles Language barrier History of Present Illness History of Present Illness Patient seen and examined A different grandson is present today he is pleasant and helped Discussed with RN Vitals Vitals Vital Signs Date Time Temp Pulse Resp B/P (MAP) Pulse Ox O2 Delivery O2 Flow Rate FiO2 12/21/18 11:06 98.4 86 20 168/84 (112) 97 Room Air 98.4 Physical Exam Physical Exam GENERAL: Alert, oriented, awake female, lying in bed comfortably, in no acute distress, cooperative. HEENT: Normocephalic, atraumatic and anicteric. No thrush. Oral mucosa moist. NECK: Supple. No JVD. No thyromegaly. LUNGS: Clear bilaterally. No wheezing. HEART: S1 and S2. No gallops, murmurs or rubs. ABDOMEN: Soft, nontender and nondistended. No rebound and no guarding. EXTREMITIES: No edema, no cyanosis and no clubbing. NEUROLOGICAL: Alert and oriented x 3, grossly nonfocal. PSYCHIATRIC: Cooperative, appropriate mood and affect. DERMATOLOGIC: Warm, dry. No generalized rash. No skin breakdown noted. General: Alert, Oriented X3, Cooperative, No acute distress Heart: Regular rate, Normal S1, Normal S2 Lungs: Clear Abdomen: Normal bowel sounds, Soft, No tenderness, No hepatosplenomegaly, No masses Extremities: No clubbing, No cyanosis, No edema, Normal pulses, No tenderness/swelling Skin: No rashes, No breakdown, No significant lesion Labs Labs: Laboratory Tests Test 12/20/18 11:10 12/20/18 16:43 12/20/18 19:10 12/21/18 07:46 Glucose (Fingerstick) 144 mg/dL (70-99) 184 mg/dL (70-99) 179 mg/dL (70-99) 164 mg/dL (70-99) Review of Systems Review of Systems No new complaints Assessment and Plan Assessmemt and Plan Problems Medical Problems: (1) Acute gastroenteritis Status: Acute (2) Hyperglycemia Status: Acute (3) Pyelonephritis Status: Acute (4) Renal insufficiency Status: Acute (5) Sepsis Status: Acute (6) Uncontrolled diabetes mellitus Status: Acute Severe sepsis GNR bacteremia POA 7 bottles ID and SHIRIN still pending sourceGU or GI ct a/p possible pyelonephritis UTI N/V/D/Abdo pain DM poorly controlled Advanced age Debility Plan: Plan of Care IV antibiotics PT OT Home meds DVT prophylaxis Full code Appreciate subspecialist input f/u c/s and labs in am cont supportive care Comment Review of Relevant I have reviewed the following items marisel (where applicable) has been applied. Labs Laboratory Tests Test 12/19/18 11:14 12/19/18 16:55 12/19/18 19:17 12/20/18 07:02 Glucose (Fingerstick) 246 mg/dL (70-99) 240 mg/dL (70-99) 228 mg/dL (70-99) 169 mg/dL (70-99) Test 12/20/18 11:00 12/20/18 11:10 12/20/18 16:43 12/20/18 19:10 White Blood Count 6.7 x10^3/uL (4.0-11.0) Red Blood Count 3.37 x10^6/uL (3.50-5.40) Hemoglobin 10.6 g/dL (12.0-15.5) Hematocrit 30.3 % (36.0-47.0) Mean Corpuscular Volume 90 fL (79-100) Mean Corpuscular Hemoglobin 31 pg (25-35) Mean Corpuscular Hemoglobin Concent 35 g/dL (31-37) Red Cell Distribution Width 13.0 % (11.5-14.5) Platelet Count 159 x10^3/uL (140-400) Neutrophils (%) (Auto) 80 % (31-73) Lymphocytes (%) (Auto) 11 % (24-48) Monocytes (%) (Auto) 9 % (0-9) Eosinophils (%) (Auto) 1 % (0-3) Basophils (%) (Auto) 0 % (0-3) Neutrophils # (Auto) 5.3 x10^3uL (1.8-7.7) Lymphocytes # (Auto) 0.7 x10^3/uL (1.0-4.8) Monocytes # (Auto) 0.6 x10^3/uL (0.0-1.1) Eosinophils # (Auto) 0.0 x10^3/uL (0.0-0.7) Basophils # (Auto) 0.0 x10^3/uL (0.0-0.2) Sodium Level 135 mmol/L (136-145) Potassium Level 2.8 mmol/L (3.5-5.1) Chloride Level 97 mmol/L (98-107) Carbon Dioxide Level 23 mmol/L (21-32) Anion Gap 15 (6-14) Blood Urea Nitrogen 10 mg/dL (7-20) Creatinine 0.8 mg/dL (0.6-1.0) Estimated GFR (Cockcroft-Gault) 71.8 BUN/Creatinine Ratio 13 (6-20) Glucose Level 157 mg/dL (70-99) Lactic Acid Level 0.9 mmol/L (0.4-2.0) Calcium Level 8.6 mg/dL (8.5-10.1) Total Bilirubin 0.6 mg/dL (0.2-1.0) Aspartate Amino Transf (AST/SGOT) 16 U/L (15-37) Alanine Aminotransferase (ALT/SGPT) 15 U/L (14-59) Alkaline Phosphatase 67 U/L (46-116) Total Protein 6.2 g/dL (6.4-8.2) Albumin 2.3 g/dL (3.4-5.0) Albumin/Globulin Ratio 0.6 (1.0-1.7) Glucose (Fingerstick) 144 mg/dL (70-99) 184 mg/dL (70-99) 179 mg/dL (70-99) Test 12/21/18 07:46 Glucose (Fingerstick) 164 mg/dL (70-99) Laboratory Tests Test 12/20/18 11:10 12/20/18 16:43 12/20/18 19:10 12/21/18 07:46 Glucose (Fingerstick) 144 mg/dL (70-99) 184 mg/dL (70-99) 179 mg/dL (70-99) 164 mg/dL (70-99) Microbiology 12/20/18 Blood Culture - Preliminary, Resulted NO GROWTH AFTER 1 DAY 12/17/18 Urine Culture - Preliminary, Resulted 12/17/18 Urine Culture Result 1 (SHIRIN) - Preliminary, Resulted Medications Current Medications Sodium Chloride 1,000 ml @ 1,000 mls/hr Q1H IV Last administered on 12/17/18at 21:10; Start 12/17/18 at 20:15; Stop 12/17/18 at 21:14; Status DC Fentanyl Citrate (Fentanyl 2ml Vial) 25 mcg 1X ONCE IV Last administered on 12/17/18at 21:10; Start 12/17/18 at 20:15; Stop 12/17/18 at 20:52; Status DC Ondansetron HCl (Zofran) 4 mg 1X ONCE IV Last administered on 12/17/18at 21:11; Start 12/17/18 at 20:15; Stop 12/17/18 at 20:52; Status DC Ceftriaxone Sodium (Rocephin) 1 gm 1X ONCE IVP Last administered on 12/17/18at 21:45; Start 12/17/18 at 22:00; Stop 12/17/18 at 22:01; Status DC Sodium Chloride 1,000 ml @ 1,000 mls/hr 1X ONCE IV Last administered on 12/17/18at 21:47; Start 12/17/18 at 22:00; Stop 12/17/18 at 22:59; Status DC Ondansetron HCl (Zofran) 4 mg PRN Q8HRS PRN IV NAUSEA/VOMITING 1ST CHOICE Last administered on 12/18/18at 04:30; Start 12/17/18 at 22:15; Stop 12/18/18 at 08:49; Status DC Sodium Chloride 1,000 ml @ 150 mls/hr Q6H40M IV Last administered on 12/18/18at 18:30; Start 12/17/18 at 22:30; Stop 12/18/18 at 22:29; Status DC Dextrose (Dextrose 50%-Water Syringe) 12.5 gm PRN Q15MIN PRN IV SEE COMMENTS; Start 12/17/18 at 22:15; Stop 12/18/18 at 08:51; Status DC Insulin Human Lispro (HumaLOG) 0-9 UNITS TIDWMEALS SQ ; Start 12/18/18 at 08:00; Status UNV Dextrose (Dextrose 50%-Water Syringe) 12.5 gm PRN Q15MIN PRN IV SEE COMMENTS; Start 12/18/18 at 01:30; Status UNV Insulin Human Lispro (HumaLOG) 0-9 UNITS TIDWMEALS SQ Last administered on 12/21/18at 08:14; Start 12/18/18 at 08:00 Dextrose (Dextrose 50%-Water Syringe) 12.5 gm PRN Q15MIN PRN IV SEE COMMENTS; Start 12/18/18 at 01:45 Insulin Human Lispro (HumaLOG) 10 units 1X ONCE SQ Last administered on 12/18/18at 02:27; Start 12/18/18 at 02:00; Stop 12/18/18 at 02:01; Status DC Fentanyl Citrate (Fentanyl 2ml Vial) 25 mcg PRN Q2HR PRN IV SEVERE PAIN Last administered on 12/18/18at 02:55; Start 12/18/18 at 02:45 Metoprolol Tartrate (Lopressor) 50 mg BID PO Last administered on 12/21/18at 08:13; Start 12/18/18 at 09:00 Metoprolol Tartrate (Lopressor) 50 mg 1X ONCE PO Last administered on 12/18/18at 04:46; Start 12/18/18 at 05:00; Stop 12/18/18 at 05:02; Status DC Acetaminophen (Tylenol) 650 mg PRN Q6HRS PRN PO mild temp/pain Last administered on 12/18/18at 04:47; Start 12/18/18 at 04:45; Stop 12/18/18 at 08:51; Status DC Ondansetron HCl (Zofran) 4 mg PRN Q6HRS PRN IV NAUSEA/VOMITING 1ST CHOICE Last administered on 12/18/18at 14:00; Start 12/18/18 at 09:00 Acetaminophen (Tylenol) 500 mg PRN Q6HRS PRN PO MILD PAIN / TEMP Last administ ered on 12/20/18at 09:32; Start 12/18/18 at 09:00 Acetaminophen/ Codeine Phosphate (Tylenol #3) 1 tab PRN Q6HRS PRN PO MODERATE PAIN Last administered on 12/19/18at 11:39; Start 12/18/18 at 09:00 Ceftriaxone Sodium (Rocephin) 1 gm Q24H IVP ; Start 12/18/18 at 21:00; Stop 12/18/18 at 21:00; Status DC Morphine Sulfate (Morphine Sulfate) 2 mg PRN Q2HR PRN IV MODERATE PAIN; Start 12/18/18 at 09:00 Diphenhydramine HCl (Benadryl) 25 mg PRN QHS PRN PO INSOMNIA; Start 12/18/18 at 09:00 Piperacillin Sod/ Tazobactam Sod 2.25 gm/Sodium Chloride 50 ml @ 100 mls/hr Q6HRS IV Last administered on 12/19/18at 05:28; Start 12/18/18 at 12:00; Stop 12/19/18 at 10:48; Status DC Lactobacillus Rhamnosus (Culturelle) 1 cap BID PO Last administered on 12/21/18at 08:05; Start 12/18/18 at 21:00 Prochlorperazine Edisylate (Compazine) 10 mg PRN Q6HRS PRN IV NAUSEA/VOMITING 2ND CHOICE Last administered on 12/18/18at 16:18; Start 12/18/18 at 16:15 Meropenem 500 mg/ Sodium Chloride 50 ml @ 100 mls/hr Q6HRS IV Last administered on 12/21/18at 06:12; Start 12/19/18 at 12:00 Sodium Chloride 1,000 ml @ 75 mls/hr [id number] IV Last administered on 12/20/18at 23:51; Start 12/20/18 at 09:30 Potassium Chloride (Klor-Con) 40 meq 1X ONCE PO Last administered on 12/20/18at 12:30; Start 12/20/18 at 12:30; Stop 12/20/18 at 12:31; Status DC Vitals/I & O Vital Sign - Last 24 Hours 12/20/18 12/20/18 12/20/18 12/20/18 15:00 19:00 20:00 21:07 Temp 98.6 98.0 98.6 98.0 Pulse 83 103 103 Resp 16 18 B/P (MAP) 179/85 (116) 170/88 (115) 170/88 Pulse Ox 99 97 O2 Delivery Room Air Room Air Room Air 12/20/18 12/21/18 12/21/18 12/21/18 23:00 03:57 07:00 08:13 Temp 98.9 98.8 98.3 98.9 98.8 98.3 Pulse 94 97 101 101 Resp 16 12 14 B/P (MAP) 162/77 (105) 169/79 (109) 163/86 (111) 163/86 Pulse Ox 95 95 97 O2 Delivery Room Air Room Air Room Air 12/21/18 11:06 Temp 98.4 98.4 Pulse 86 Resp 20 B/P (MAP) 168/84 (112) Pulse Ox 97 O2 Delivery Room Air Intake and Output 12/20/18 12/20/18 12/21/18 15:00 23:00 07:00 Intake Total 240 ml 350 ml 400 ml Balance 240 ml 350 ml 400 ml GWYN SCANLON III DO Dec 21, 2018 11:11
--- NOTE | 2018-12-21 11:44 | PDOC ---
Infectious Disease Note Subjective Subjective Grandson interpreting Comfortable Tolerating clear liquids No fevers since yesterday morning Denies pain/N/V/D ROS ROS per HPI Vital Sign Vital Signs Vital Signs Date Time Temp Pulse Resp B/P (MAP) Pulse Ox O2 Delivery O2 Flow Rate FiO2 12/21/18 11:06 98.4 86 20 168/84 (112) 97 Room Air 98.4 Physical Exam PHYSICAL EXAM GENERAL: Lying down, alert, NAD HEENT: Oral mucosa moist. NECK: Supple LUNGS: Clear bilaterally HEART: S1 and S2 ABDOMEN: Soft, nontender and nondistended. No rebound and no guarding. EXTREMITIES: No edema, no cyanosis and no clubbing. NEUROLOGICAL: Alert and responding appropriately SKIN: No rash PIV Labs Lab Laboratory Tests Test 12/20/18 16:43 12/20/18 19:10 12/21/18 07:46 Glucose (Fingerstick) 184 mg/dL (70-99) 179 mg/dL (70-99) 164 mg/dL (70-99) Micro BLD CULT RESULT 1 Preliminary Comment Coagulase negative Staphylococcus species. BLOOD CULTURE Final GRAM NEGATIVE RODS IN 7 OF 8 BOTTLES (4 SETS COLLECTED). CALLED TO RONIT LIMA ON 6S 12/19/18 AT 0849 BY Deanna BOWEN. CULTURES HAVE BEEN SENT TO [facility] FOR FURTHER IDENTIFICATION. 12/17. URINE CULTURE RES 1 Preliminary Escherichia coli Objective Assessment GNR sepsis with bacteremia POA (7 of 8 bottles), 12/17 & 12/18 with bacterial clearance so far 12/20. ID and SHIRIN still pending - ct a/p possible pyelonephritis CoNS bacteremia, likely contaminate UTI E. coli (POA) 12/17 N/V/D/Abdo pain, better DM poorly controlled Plan Plan of Care Merrem Probiotics f/u cultures Monitor d/w nursing Attending Co-Sign Attending Co-Sign The patient was seen and interviewed as well as examined at the bedside. The chart was reviewed. The case was discussed. Agree with the plan of care. RUMA BURCH APRN Dec 21, 2018 11:44 GENARO ASH MD Dec 21, 2018 18:08
[2018-12-21] MEDS: IV NORMAL SALINE 1000ML BAG 1,000 ML IV SCH (12:10)
[2018-12-21 15:00] VITALS: BP 180/91
[2018-12-21 19:00] VITALS: BP 186/100
[2018-12-21 23:44] VITALS: BP 168/86
[2018-12-22] MEDS: MEROPENEM 500 MG in IV NORMAL SALINE 50ML 50 ML IV SCH ×4 (00:08→17:58)
[2018-12-22] MEDS: IV NORMAL SALINE 1000ML BAG 1,000 ML IV SCH ×2 (00:09→14:50)
[2018-12-22 03:46] VITALS: BP 168/88
[2018-12-22 07:00] VITALS: BP 172/85
[2018-12-22] MEDS: METOPROLOL TART IMMED RELEASE 50 MG TABLET. PO SCH ×2 (09:11→19:15)
[2018-12-22] MEDS: LACTOBACILLUS RHAMNOSUS GG 1 CAPSULE. PO SCH ×2 (09:11→19:15)
[2018-12-22] MEDS: INSULIN LISPRO 300 UNITS/3 ML INSULN.PEN. SQ SCH ×3 (09:22→17:00)
[2018-12-22 11:00] VITALS: BP 180/84
--- NOTE | 2018-12-22 11:33 | PDOC ---
Infectious Disease Note Subjective Subjective Says doing good Denies pain No fevers last 24 hours ROS ROS per HPI Vital Sign Vital Signs Vital Signs Date Time Temp Pulse Resp B/P (MAP) Pulse Ox O2 Delivery O2 Flow Rate FiO2 12/22/18 09:11 95 172/85 12/22/18 08:00 Room Air 12/22/18 07:00 98.4 18 99 98.4 Physical Exam PHYSICAL EXAM GENERAL: Sitting upright in bed, alert, smiling HEENT: Oral cavity clear NECK: Supple LUNGS: Clear bilaterally HEART: S1 and S2 ABDOMEN: Soft, nontender and nondistended. EXTREMITIES: No edema, no cyanosis NEUROLOGICAL: Alert and responding appropriately SKIN: No rash PIV Labs Lab Laboratory Tests Test 12/21/18 12:09 12/21/18 16:58 12/21/18 19:13 12/22/18 07:04 Glucose (Fingerstick) 265 mg/dL (70-99) 232 mg/dL (70-99) 196 mg/dL (70-99) 194 mg/dL (70-99) Micro 12/17 BLOOD CULTURE LC Final Final report BLD CULT RESULT 1 Final Escherichia coli Susceptibility profile is consistent with a probable ESBL. ANTIMICROBIAL SUSCEPTIBILITY Final Comment S = Susceptible; I = Intermediate; R = Resistant P = Positive; N = Negative MICS are expressed in micrograms per mL Antibiotic RSLT#1 RSLT#2 RSLT#3 RSLT#4 Amoxicillin/Clavulanic Acid S =4 Ampicillin R>=32 Cefazolin R>=64 Cefepime R =16 Ceftriaxone R>=64 Cefuroxime R>=64 Ciprofloxacin R>=4 Ertapenem S<=0.12 Gentamicin S<=1 Imipenem S<=0.25 Levofloxacin R>=8 Meropenem S<=0.25 Nitrofurantoin S<=16 Piperacillin/Tazobactam S<=4 Tetracycline R>=16 Tobramycin S<=1 Trimethoprim/Sulfa R>=320 12/20. BLOOD CULTURE Preliminary NO GROWTH AFTER 2 DAYS BLD CULT RESULT 1 Preliminary Coagulase negative Staphylococcus species. BLOOD CULTURE Final GRAM NEGATIVE RODS IN 7 OF 8 BOTTLES (4 SETS COLLECTED). CALLED TO RONIT LIMA ON 6S 12/19/18 AT 0849 BY Deanna BOWEN. CULTURES HAVE BEEN SENT TO [facility] FOR FURTHER IDENTIFICATION. 12/17. URINE CULTURE RES 1 Preliminary Escherichia coli Objective Assessment ESBL Ecoli sepsis with bacteremia POA (7 of 8 bottles), 12/17 & 12/18 with bacterial clearance so far 12/20. - ct a/p possible pyelonephritis CoNS bacteremia, likely contaminate UTI E. coli (POA) 12/17 N/V/D/Abdo pain, better DM poorly controlled Plan Plan of Care Merrem for now Will need outpatient IV Invanz Probiotics f/u cultures labs in am Attending Co-Sign Attending Co-Sign The patient was seen and interviewed as well as examined at the bedside. The chart was reviewed. The case was discussed. Agree with the plan of care. RUMA BURCH APRN Dec 22, 2018 11:33 GENARO ASH MD Dec 22, 2018 15:21
--- NOTE | 2018-12-22 11:48 | PDOC ---
[facility] PROGRESS NOTE Chief Complaint Chief Complaint Severe sepsis UTI in a diabetic HONK Increase agap acidosis with mild hyponatremia AK I VMN Sepsis POA-elevated lactate GNR marleny bacteremia 1 out of 4 bottles Language barrier History of Present Illness History of Present Illness Patient seen and examined A different grandson (3rd one) is present today he is pleasant and helped Discussed with RN Vitals Vitals Vital Signs Date Time Temp Pulse Resp B/P (MAP) Pulse Ox O2 Delivery O2 Flow Rate FiO2 12/22/18 09:11 95 172/85 12/22/18 08:00 Room Air 12/22/18 07:00 98.4 18 99 98.4 Physical Exam Physical Exam GENERAL: Sitting upright in bed, alert, smiling HEENT: Oral cavity clear NECK: Supple LUNGS: Clear bilaterally HEART: S1 and S2 ABDOMEN: Soft, nontender and nondistended. EXTREMITIES: No edema, no cyanosis NEUROLOGICAL: Alert and responding appropriately SKIN: No rash PIV General: Alert, Oriented X3, Cooperative, No acute distress Heart: Regular rate, Normal S1, Normal S2 Lungs: Clear Abdomen: Normal bowel sounds, Soft, No tenderness, No hepatosplenomegaly, No masses Extremities: No clubbing, No cyanosis, No edema, Normal pulses, No tenderness/swelling Skin: No rashes, No breakdown, No significant lesion Labs Labs: Laboratory Tests Test 12/21/18 12:09 12/21/18 16:58 12/21/18 19:13 12/22/18 07:04 Glucose (Fingerstick) 265 mg/dL (70-99) 232 mg/dL (70-99) 196 mg/dL (70-99) 194 mg/dL (70-99) Review of Systems Review of Systems Complains of weakness and hunger Assessment and Plan Assessmemt and Plan Problems Medical Problems: (1) Acute gastroenteritis Status: Acute (2) Hyperglycemia Status: Acute (3) Pyelonephritis Status: Acute (4) Renal insufficiency Status: Acute (5) Sepsis Status: Acute (6) Uncontrolled diabetes mellitus Status: Acute Severe sepsis GNR bacteremia POA 7/8 bottles ID and SHIRIN still pending sourceGU or GI ct a/p possible pyelonephritis UTI N/V/D/Abdo pain DM poorly controlled Advanced age Debility Plan: Plan of Care IV antibiotics PT OT Home meds DVT prophylaxis Full code Appreciate subspecialist input f/u c/s and labs in am cont supportive care Comment Review of Relevant I have reviewed the following items marisel (where applicable) has been applied. Labs Laboratory Tests Test 12/20/18 16:43 12/20/18 19:10 12/21/18 07:46 12/21/18 12:09 Glucose (Fingerstick) 184 mg/dL (70-99) 179 mg/dL (70-99) 164 mg/dL (70-99) 265 mg/dL (70-99) Test 12/21/18 16:58 12/21/18 19:13 12/22/18 07:04 Glucose (Fingerstick) 232 mg/dL (70-99) 196 mg/dL (70-99) 194 mg/dL (70-99) Laboratory Tests Test 12/21/18 12:09 12/21/18 16:58 12/21/18 19:13 12/22/18 07:04 Glucose (Fingerstick) 265 mg/dL (70-99) 232 mg/dL (70-99) 196 mg/dL (70-99) 194 mg/dL (70-99) Microbiology 12/20/18 Blood Culture - Preliminary, Resulted NO GROWTH AFTER 2 DAYS 12/17/18 Urine Culture - Final, Complete 12/17/18 Urine Culture Result 1 (SHIRIN) - Final, Complete 12/17/18 Antimicrobic Susceptibility - Final, Complete Medications Current Medications Sodium Chloride 1,000 ml @ 1,000 mls/hr Q1H IV Last administered on 12/17/18at 21:10; Start 12/17/18 at 20:15; Stop 12/17/18 at 21:14; Status DC Fentanyl Citrate (Fentanyl 2ml Vial) 25 mcg 1X ONCE IV Last administered on 12/17/18at 21:10; Start 12/17/18 at 20:15; Stop 12/17/18 at 20:52; Status DC Ondansetron HCl (Zofran) 4 mg 1X ONCE IV Last administered on 12/17/18at 21:11; Start 12/17/18 at 20:15; Stop 12/17/18 at 20:52; Status DC Ceftriaxone Sodium (Rocephin) 1 gm 1X ONCE IVP Last administered on 12/17/18at 21:45; Start 12/17/18 at 22:00; Stop 12/17/18 at 22:01; Status DC Sodium Chloride 1,000 ml @ 1,000 mls/hr 1X ONCE IV Last administered on 12/17/18at 21:47; Start 12/17/18 at 22:00; Stop 12/17/18 at 22:59; Status DC Ondansetron HCl (Zofran) 4 mg PRN Q8HRS PRN IV NAUSEA/VOMITING 1ST CHOICE Last administered on 12/18/18at 04:30; Start 12/17/18 at 22:15; Stop 12/18/18 at 08:49; Status DC Sodium Chloride 1,000 ml @ 150 mls/hr Q6H40M IV Last administered on 12/18/18at 18:30; Start 12/17/18 at 22:30; Stop 12/18/18 at 22:29; Status DC Dextrose (Dextrose 50%-Water Syringe) 12.5 gm PRN Q15MIN PRN IV SEE COMMENTS; Start 12/17/18 at 22:15; Stop 12/18/18 at 08:51; Status DC Insulin Human Lispro (HumaLOG) 0-9 UNITS TIDWMEALS SQ ; Start 12/18/18 at 08:00; Status UNV Dextrose (Dextrose 50%-Water Syringe) 12.5 gm PRN Q15MIN PRN IV SEE COMMENTS; Start 12/18/18 at 01:30; Status UNV Insulin Human Lispro (HumaLOG) 0-9 UNITS TIDWMEALS SQ Last administered on 12/22/18at 09:22; Start 12/18/18 at 08:00 Dextrose (Dextrose 50%-Water Syringe) 12.5 gm PRN Q15MIN PRN IV SEE COMMENTS; Start 12/18/18 at 01:45 Insulin Human Lispro (HumaLOG) 10 units 1X ONCE SQ Last administered on 12/18/18at 02:27; Start 12/18/18 at 02:00; Stop 12/18/18 at 02:01; Status DC Fentanyl Citrate (Fentanyl 2ml Vial) 25 mcg PRN Q2HR PRN IV SEVERE PAIN Last administered on 12/18/18at 02:55; Start 12/18/18 at 02:45 Metoprolol Tartrate (Lopressor) 50 mg BID PO Last administered on 12/22/18at 09:11; Start 12/18/18 at 09:00 Metoprolol Tartrate (Lopressor) 50 mg 1X ONCE PO Last administered on 12/18/18at 04:46; Start 12/18/18 at 05:00; Stop 12/18/18 at 05:02; Status DC Acetaminophen (Tylenol) 650 mg PRN Q6HRS PRN PO mild temp/pain Last administered on 12/18/18at 04:47; Start 12/18/18 at 04:45; Stop 12/18/18 at 08:51; Status DC Ondansetron HCl (Zofran) 4 mg PRN Q6HRS PRN IV NAUSEA/VOMITING 1ST CHOICE Last administered on 12/18/18at 14:00; Start 12/18/18 at 09:00 Acetaminophen (Tylenol) 500 mg PRN Q6HRS PRN PO MILD PAIN / TEMP Last admin istered on 12/20/18at 09:32; Start 12/18/18 at 09:00 Acetaminophen/ Codeine Phosphate (Tylenol #3) 1 tab PRN Q6HRS PRN PO MODERATE PAIN Last administered on 12/19/18at 11:39; Start 12/18/18 at 09:00 Ceftriaxone Sodium (Rocephin) 1 gm Q24H IVP ; Start 12/18/18 at 21:00; Stop 12/18/18 at 21:00; Status DC Morphine Sulfate (Morphine Sulfate) 2 mg PRN Q2HR PRN IV MODERATE PAIN; Start 12/18/18 at 09:00 Diphenhydramine HCl (Benadryl) 25 mg PRN QHS PRN PO INSOMNIA; Start 12/18/18 at 09:00 Piperacillin Sod/ Tazobactam Sod 2.25 gm/Sodium Chloride 50 ml @ 100 mls/hr Q6HRS IV Last administered on 12/19/18at 05:28; Start 12/18/18 at 12:00; Stop 12/19/18 at 10:48; Status DC Lactobacillus Rhamnosus (Culturelle) 1 cap BID PO Last administered on 12/22/18at 09:11; Start 12/18/18 at 21:00 Prochlorperazine Edisylate (Compazine) 10 mg PRN Q6HRS PRN IV NAUSEA/VOMITING 2ND CHOICE Last administered on 12/18/18at 16:18; Start 12/18/18 at 16:15 Meropenem 500 mg/ Sodium Chloride 50 ml @ 100 mls/hr Q6HRS IV Last administered on 12/22/18at 05:15; Start 12/19/18 at 12:00 Sodium Chloride 1,000 ml @ 75 mls/hr [id number] IV Last administered on 12/22/18at 00:09; Start 12/20/18 at 09:30 Potassium Chloride (Klor-Con) 40 meq 1X ONCE PO Last administered on 12/20/18at 12:30; Start 12/20/18 at 12:30; Stop 12/20/18 at 12:31; Status DC Vitals/I & O Vital Sign - Last 24 Hours 12/21/18 12/21/18 12/21/18 12/21/18 15:00 19:00 20:00 20:45 Temp 98.5 98.7 98.5 98.7 Pulse 89 97 97 Resp 16 20 B/P (MAP) 180/91 (120) 186/100 (128) 186/100 Pulse Ox 95 97 O2 Delivery Room Air Room Air Room Air 12/21/18 12/22/18 12/22/18 12/22/18 23:44 03:46 07:00 08:00 Temp 98.7 98.8 98.4 98.7 98.8 98.4 Pulse 83 88 95 Resp 18 20 18 B/P (MAP) 168/86 (113) 168/88 (114) 172/85 (114) Pulse Ox 98 98 99 O2 Delivery Room Air Room Air Room Air Room Air 12/22/18 09:11 Pulse 95 B/P (MAP) 172/85 Intake and Output 12/21/18 12/21/18 12/22/18 15:00 23:00 07:00 Intake Total 400 ml 250 ml 0 ml Balance 400 ml 250 ml 0 ml CASTLIDIANIAL K III DO Dec 22, 2018 11:48
[2018-12-22 15:00] VITALS: BP 183/84
--- NOTE | 2018-12-22 16:37 | NUR ---
pt has been resting all day. complains of no pain though has not eaten much of her clear diet. will continue to monitor pt. Crescencio Silva RN
[2018-12-22 19:05] VITALS: BP 182/93
[2018-12-22 23:40] VITALS: BP 158/83
[2018-12-23] MEDS: MEROPENEM 500 MG in IV NORMAL SALINE 50ML 50 ML IV SCH ×4 (00:13→18:11)
[2018-12-23 03:22] LABS: BASO % 0 % (0-3); EOS # 0.1 x10^3/uL (0.0-0.7); EOS % 2 % (0-3); HEMATOCRIT 29.4 % (36.0-47.0); HEMOGLOBIN 10.2 g/dL (12.0-15.5); LYMPH # 1.7 x10^3/uL (1.0-4.8); LYMPH % 28 % (24-48); MEAN CORPUSCULAR HEMOGLOBIN 31 pg (25-35); MEAN CORPUSCULAR HGB CONC 35 g/dL (31-37); MEAN CORPUSCULAR VOLUME 89 fL (79-100); MONO # 0.8 x10^3/uL (0.0-1.1); MONO % 13 % (0-9); NEUT # 3.3 x10^3uL (1.8-7.7); NEUT % 56 % (31-73); PLATELET COUNT 260 x10^3/uL (140-400); RED BLOOD COUNT 3.29 x10^6/uL (3.50-5.40); RED CELL DISTRIBUTION WIDTH 13.6 % (11.5-14.5); WHITE BLOOD COUNT 5.9 x10^3/uL (4.0-11.0)
[2018-12-23 03:45] VITALS: BP 166/85
[2018-12-23 04:04] LABS: ALBUMIN 2.3 g/dL (3.4-5.0); ALBUMIN/GLOBULIN RATIO 0.6 (1.0-1.7); CALCIUM 8.4 mg/dL (8.5-10.1); CREATININE 0.6 mg/dL (0.6-1.0); POTASSIUM 3.1 mmol/L (3.5-5.1); TOTAL BILIRUBIN 0.5 mg/dL (0.2-1.0); TOTAL PROTEIN 6.2 g/dL (6.4-8.2)
[2018-12-23] MEDS: IV NORMAL SALINE 1000ML BAG 1,000 ML IV SCH ×2 (05:18→18:11)
[2018-12-23 07:00] VITALS: BP 170/90
--- NOTE | 2018-12-23 08:45 | NUR ---
IP:Pt is + for (R) E.coli with ESBL in urine on 12/18/18 requiring contact precautions.
[2018-12-23] MEDS: LACTOBACILLUS RHAMNOSUS GG 1 CAPSULE. PO SCH ×2 (08:54→20:40)
[2018-12-23] MEDS: METOPROLOL TART IMMED RELEASE 50 MG TABLET. PO SCH ×2 (08:54→20:40)
[2018-12-23] MEDS: INSULIN LISPRO 300 UNITS/3 ML INSULN.PEN. SQ SCH ×3 (08:59→18:19)
--- NOTE | 2018-12-23 10:07 | PDOC ---
Infectious Disease Note Subjective Subjective Better. No pain Denies pain No fevers last 24 hours Vital Sign Vital Signs Vital Signs Date Time Temp Pulse Resp B/P (MAP) Pulse Ox O2 Delivery O2 Flow Rate FiO2 12/23/18 08:54 91 170/90 12/23/18 07:00 98.8 16 98 Room Air 98.8 Physical Exam PHYSICAL EXAM GENERAL: Sitting upright in bed, alert, smiling HEENT: Oral cavity clear NECK: Supple LUNGS: Clear bilaterally HEART: S1 and S2 ABDOMEN: Soft, nontender and nondistended. EXTREMITIES: No edema, no cyanosis NEUROLOGICAL: Alert and responding appropriately SKIN: No rash PIV Labs Lab Laboratory Tests Test 12/22/18 11:41 12/22/18 16:41 12/22/18 19:07 12/23/18 02:30 Glucose (Fingerstick) 189 mg/dL (70-99) 132 mg/dL (70-99) 167 mg/dL (70-99) White Blood Count 5.9 x10^3/uL (4.0-11.0) Red Blood Count 3.29 x10^6/uL (3.50-5.40) Hemoglobin 10.2 g/dL (12.0-15.5) Hematocrit 29.4 % (36.0-47.0) Mean Corpuscular Volume 89 fL (79-100) Mean Corpuscular Hemoglobin 31 pg (25-35) Mean Corpuscular Hemoglobin Concent 35 g/dL (31-37) Red Cell Distribution Width 13.6 % (11.5-14.5) Platelet Count 260 x10^3/uL (140-400) Neutrophils (%) (Auto) 56 % (31-73) Lymphocytes (%) (Auto) 28 % (24-48) Monocytes (%) (Auto) 13 % (0-9) Eosinophils (%) (Auto) 2 % (0-3) Basophils (%) (Auto) 0 % (0-3) Neutrophils # (Auto) 3.3 x10^3uL (1.8-7.7) Lymphocytes # (Auto) 1.7 x10^3/uL (1.0-4.8) Monocytes # (Auto) 0.8 x10^3/uL (0.0-1.1) Eosinophils # (Auto) 0.1 x10^3/uL (0.0-0.7) Basophils # (Auto) 0.0 x10^3/uL (0.0-0.2) Sodium Level 139 mmol/L (136-145) Potassium Level 3.1 mmol/L (3.5-5.1) Chloride Level 103 mmol/L (98-107) Carbon Dioxide Level 25 mmol/L (21-32) Anion Gap 11 (6-14) Blood Urea Nitrogen 6 mg/dL (7-20) Creatinine 0.6 mg/dL (0.6-1.0) Estimated GFR (Cockcroft-Gault) 100.0 BUN/Creatinine Ratio 10 (6-20) Glucose Level 237 mg/dL (70-99) Calcium Level 8.4 mg/dL (8.5-10.1) Total Bilirubin 0.5 mg/dL (0.2-1.0) Aspartate Amino Transf (AST/SGOT) 32 U/L (15-37) Alanine Aminotransferase (ALT/SGPT) 25 U/L (14-59) Alkaline Phosphatase 56 U/L (46-116) Total Protein 6.2 g/dL (6.4-8.2) Albumin 2.3 g/dL (3.4-5.0) Albumin/Globulin Ratio 0.6 (1.0-1.7) Test 12/23/18 07:02 Glucose (Fingerstick) 225 mg/dL (70-99) Micro 12/17 BLOOD CULTURE LC Final Final report BLD CULT RESULT 1 Final Escherichia coli Susceptibility profile is consistent with a probable ESBL. ANTIMICROBIAL SUSCEPTIBILITY Final Comment S = Susceptible; I = Intermediate; R = Resistant P = Positive; N = Negative MICS are expressed in micrograms per mL Antibiotic RSLT#1 RSLT#2 RSLT#3 RSLT#4 Amoxicillin/Clavulanic Acid S =4 Ampicillin R>=32 Cefazolin R>=64 Cefepime R =16 Ceftriaxone R>=64 Cefuroxime R>=64 Ciprofloxacin R>=4 Ertapenem S<=0.12 Gentamicin S<=1 Imipenem S<=0.25 Levofloxacin R>=8 Meropenem S<=0.25 Nitrofurantoin S<=16 Piperacillin/Tazobactam S<=4 Tetracycline R>=16 Tobramycin S<=1 Trimethoprim/Sulfa R>=320 5/31. BLOOD CULTURE Preliminary NO GROWTH AFTER 2 DAYS BLD CULT RESULT 1 Preliminary Coagulase negative Staphylococcus species. BLOOD CULTURE Final GRAM NEGATIVE RODS IN 7 OF 8 BOTTLES (4 SETS COLLECTED). CALLED TO RON[facility] LIMA ON 6S 12/19/18 AT 0849 BY Deanna BOWEN. CULTURES HAVE BEEN SENT TO [facility] FOR FURTHER IDENTIFICATION. 12/17. URINE CULTURE RES 1 Preliminary Escherichia coli Objective Assessment ESBL Ecoli sepsis with bacteremia POA (7 of 8 bottles), 12/17 & 12/18 with bacterial clearance so far 12/20.? from Pyelo - ct a/p possible pyelonephritis CoNS bacteremia, likely contaminate UTI E. coli (POA) 12/17 N/V/D/Abdo pain, better DM poorly controlled Plan Plan of Care Merrem for now - will Invanz at discharge Will need outpatient IV Invanz last dose 01/02 Needs midline or PICC professional services manager eval Probiotics f/u cultures labs in am D/w grand daughter and nursing GENARO ASH MD Dec 23, 2018 10:07
--- NOTE | 2018-12-23 10:40 | NUR ---
SW following for discharge planning. Discussed with RN, pt is from home with family, [place] speaking. Pt needing daily IV Invanz, outpatient. SW spoke with pt's daughter, Keren - needing power manager. Their preference for infusion time is as late as possible due to family working schedule. SW awaiting confirmation pt can do the abx here. SW will continue to follow.
--- NOTE | 2018-12-23 10:50 | PDOC ---
[employer] PROGRESS NOTE Chief Complaint Chief Complaint Severe sepsis UTI in a diabetic HONK Increase agap acidosis with mild hyponatremia AK I VMN Sepsis POA-elevated lactate GNR marleny bacteremia 1 out of 4 bottles Language barrier History of Present Illness History of Present Illness Patient seen and examined A different grandchild (4rd one) is present today he is pleasant and helped . Her name is Dayami Discussed with RN Vitals Vitals Vital Signs Date Time Temp Pulse Resp B/P (MAP) Pulse Ox O2 Delivery O2 Flow Rate FiO2 12/23/18 08:54 91 170/90 12/23/18 07:00 98.8 16 98 Room Air 98.8 Physical Exam Physical Exam GENERAL: Sitting upright in bed, alert, smiling HEENT: Oral cavity clear NECK: Supple LUNGS: Clear bilaterally HEART: S1 and S2 ABDOMEN: Soft, nontender and nondistended. EXTREMITIES: No edema, no cyanosis NEUROLOGICAL: Alert and responding appropriately SKIN: No rash PIV General: Alert, Oriented X3, Cooperative, No acute distress Heart: Regular rate, Normal S1, Normal S2 Lungs: Clear Abdomen: Normal bowel sounds, Soft, No tenderness, No hepatosplenomegaly, No masses Extremities: No clubbing, No cyanosis, No edema, Normal pulses, No tenderness/swelling Skin: No rashes, No breakdown, No significant lesion Labs Labs: Laboratory Tests Test 12/22/18 11:41 12/22/18 16:41 12/22/18 19:07 12/23/18 02:30 Glucose (Fingerstick) 189 mg/dL (70-99) 132 mg/dL (70-99) 167 mg/dL (70-99) White Blood Count 5.9 x10^3/uL (4.0-11.0) Red Blood Count 3.29 x10^6/uL (3.50-5.40) Hemoglobin 10.2 g/dL (12.0-15.5) Hematocrit 29.4 % (36.0-47.0) Mean Corpuscular Volume 89 fL (79-100) Mean Corpuscular Hemoglobin 31 pg (25-35) Mean Corpuscular Hemoglobin Concent 35 g/dL (31-37) Red Cell Distribution Width 13.6 % (11.5-14.5) Platelet Count 260 x10^3/uL (140-400) Neutrophils (%) (Auto) 56 % (31-73) Lymphocytes (%) (Auto) 28 % (24-48) Monocytes (%) (Auto) 13 % (0-9) Eosinophils (%) (Auto) 2 % (0-3) Basophils (%) (Auto) 0 % (0-3) Neutrophils # (Auto) 3.3 x10^3uL (1.8-7.7) Lymphocytes # (Auto) 1.7 x10^3/uL (1.0-4.8) Monocytes # (Auto) 0.8 x10^3/uL (0.0-1.1) Eosinophils # (Auto) 0.1 x10^3/uL (0.0-0.7) Basophils # (Auto) 0.0 x10^3/uL (0.0-0.2) Sodium Level 139 mmol/L (136-145) Potassium Level 3.1 mmol/L (3.5-5.1) Chloride Level 103 mmol/L (98-107) Carbon Dioxide Level 25 mmol/L (21-32) Anion Gap 11 (6-14) Blood Urea Nitrogen 6 mg/dL (7-20) Creatinine 0.6 mg/dL (0.6-1.0) Estimated GFR (Cockcroft-Gault) 100.0 BUN/Creatinine Ratio 10 (6-20) Glucose Level 237 mg/dL (70-99) Calcium Level 8.4 mg/dL (8.5-10.1) Total Bilirubin 0.5 mg/dL (0.2-1.0) Aspartate Amino Transf (AST/SGOT) 32 U/L (15-37) Alanine Aminotransferase (ALT/SGPT) 25 U/L (14-59) Alkaline Phosphatase 56 U/L (46-116) Total Protein 6.2 g/dL (6.4-8.2) Albumin 2.3 g/dL (3.4-5.0) Albumin/Globulin Ratio 0.6 (1.0-1.7) Test 12/23/18 07:02 Glucose (Fingerstick) 225 mg/dL (70-99) Assessment and Plan Assessmemt and Plan Problems Medical Problems: (1) Acute gastroenteritis Status: Acute (2) Hyperglycemia Status: Acute (3) Pyelonephritis Status: Acute (4) Renal insufficiency Status: Acute Severe sepsis UTI in a diabetic HONK Increase agap acidosis with mild hyponatremia AK I VMN Sepsis POA-elevated lactate GNR marleny bacteremia 1 out of 4 bottles Language barrier (5) Sepsis Plan Per ID: Merrem for now - will Invanz at discharge Will need outpatient IV Invanz last dose 01/02 Needs midline or PICC director of professional services eval Probiotics f/u cultures labs in am Appreciate subspecialist input Hope to discharge a day or 2 (6) Uncontrolled diabetes mellitus Status: Acute Comment Review of Relevant I have reviewed the following items marisel (where applicable) has been applied. Labs Laboratory Tests Test 12/21/18 12:09 12/21/18 16:58 12/21/18 19:13 12/22/18 07:04 Glucose (Fingerstick) 265 mg/dL (70-99) 232 mg/dL (70-99) 196 mg/dL (70-99) 194 mg/dL (70-99) Test 12/22/18 11:41 12/22/18 16:41 12/22/18 19:07 12/23/18 02:30 Glucose (Fingerstick) 189 mg/dL (70-99) 132 mg/dL (70-99) 167 mg/dL (70-99) White Blood Count 5.9 x10^3/uL (4.0-11.0) Red Blood Count 3.29 x10^6/uL (3.50-5.40) Hemoglobin 10.2 g/dL (12.0-15.5) Hematocrit 29.4 % (36.0-47.0) Mean Corpuscular Volume 89 fL (79-100) Mean Corpuscular Hemoglobin 31 pg (25-35) Mean Corpuscular Hemoglobin Concent 35 g/dL (31-37) Red Cell Distribution Width 13.6 % (11.5-14.5) Platelet Count 260 x10^3/uL (140-400) Neutrophils (%) (Auto) 56 % (31-73) Lymphocytes (%) (Auto) 28 % (24-48) Monocytes (%) (Auto) 13 % (0-9) Eosinophils (%) (Auto) 2 % (0-3) Basophils (%) (Auto) 0 % (0-3) Neutrophils # (Auto) 3.3 x10^3uL (1.8-7.7) Lymphocytes # (Auto) 1.7 x10^3/uL (1.0-4.8) Monocytes # (Auto) 0.8 x10^3/uL (0.0-1.1) Eosinophils # (Auto) 0.1 x10^3/uL (0.0-0.7) Basophils # (Auto) 0.0 x10^3/uL (0.0-0.2) Sodium Level 139 mmol/L (136-145) Potassium Level 3.1 mmol/L (3.5-5.1) Chloride Level 103 mmol/L (98-107) Carbon Dioxide Level 25 mmol/L (21-32) Anion Gap 11 (6-14) Blood Urea Nitrogen 6 mg/dL (7-20) Creatinine 0.6 mg/dL (0.6-1.0) Estimated GFR (Cockcroft-Gault) 100.0 BUN/Creatinine Ratio 10 (6-20) Glucose Level 237 mg/dL (70-99) Calcium Level 8.4 mg/dL (8.5-10.1) Total Bilirubin 0.5 mg/dL (0.2-1.0) Aspartate Amino Transf (AST/SGOT) 32 U/L (15-37) Alanine Aminotransferase (ALT/SGPT) 25 U/L (14-59) Alkaline Phosphatase 56 U/L (46-116) Total Protein 6.2 g/dL (6.4-8.2) Albumin 2.3 g/dL (3.4-5.0) Albumin/Globulin Ratio 0.6 (1.0-1.7) Test 12/23/18 07:02 Glucose (Fingerstick) 225 mg/dL (70-99) Laboratory Tests Test 12/22/18 11:41 12/22/18 16:41 12/22/18 19:07 12/23/18 02:30 Glucose (Fingerstick) 189 mg/dL (70-99) 132 mg/dL (70-99) 167 mg/dL (70-99) White Blood Count 5.9 x10^3/uL (4.0-11.0) Red Blood Count 3.29 x10^6/uL (3.50-5.40) Hemoglobin 10.2 g/dL (12.0-15.5) Hematocrit 29.4 % (36.0-47.0) Mean Corpuscular Volume 89 fL (79-100) Mean Corpuscular Hemoglobin 31 pg (25-35) Mean Corpuscular Hemoglobin Concent 35 g/dL (31-37) Red Cell Distribution Width 13.6 % (11.5-14.5) Platelet Count 260 x10^3/uL (140-400) Neutrophils (%) (Auto) 56 % (31-73) Lymphocytes (%) (Auto) 28 % (24-48) Monocytes (%) (Auto) 13 % (0-9) Eosinophils (%) (Auto) 2 % (0-3) Basophils (%) (Auto) 0 % (0-3) Neutrophils # (Auto) 3.3 x10^3uL (1.8-7.7) Lymphocytes # (Auto) 1.7 x10^3/uL (1.0-4.8) Monocytes # (Auto) 0.8 x10^3/uL (0.0-1.1) Eosinophils # (Auto) 0.1 x10^3/uL (0.0-0.7) Basophils # (Auto) 0.0 x10^3/uL (0.0-0.2) Sodium Level 139 mmol/L (136-145) Potassium Level 3.1 mmol/L (3.5-5.1) Chloride Level 103 mmol/L (98-107) Carbon Dioxide Level 25 mmol/L (21-32) Anion Gap 11 (6-14) Blood Urea Nitrogen 6 mg/dL (7-20) Creatinine 0.6 mg/dL (0.6-1.0) Estimated GFR (Cockcroft-Gault) 100.0 BUN/Creatinine Ratio 10 (6-20) Glucose Level 237 mg/dL (70-99) Calcium Level 8.4 mg/dL (8.5-10.1) Total Bilirubin 0.5 mg/dL (0.2-1.0) Aspartate Amino Transf (AST/SGOT) 32 U/L (15-37) Alanine Aminotransferase (ALT/SGPT) 25 U/L (14-59) Alkaline Phosphatase 56 U/L (46-116) Total Protein 6.2 g/dL (6.4-8.2) Albumin 2.3 g/dL (3.4-5.0) Albumin/Globulin Ratio 0.6 (1.0-1.7) Test 12/23/18 07:02 Glucose (Fingerstick) 225 mg/dL (70-99) Microbiology 12/20/18 Blood Culture - Preliminary, Resulted NO GROWTH AFTER 2 DAYS 12/17/18 Urine Culture - Final, Complete 12/17/18 Urine Culture Result 1 (SHIRIN) - Final, Complete 12/17/18 Antimicrobic Susceptibility - Final, Complete Medications Current Medications Sodium Chloride 1,000 ml @ 1,000 mls/hr Q1H IV Last administered on 12/17/18at 21:10; Start 12/17/18 at 20:15; Stop 12/17/18 at 21:14; Status DC Fentanyl Citrate (Fentanyl 2ml Vial) 25 mcg 1X ONCE IV Last administered on 12/17/18at 21:10; Start 12/17/18 at 20:15; Stop 12/17/18 at 20:52; Status DC Ondansetron HCl (Zofran) 4 mg 1X ONCE IV Last administered on 12/17/18at 21:11; Start 12/17/18 at 20:15; Stop 12/17/18 at 20:52; Status DC Ceftriaxone Sodium (Rocephin) 1 gm 1X ONCE IVP Last administered on 12/17/18at 21:45; Start 12/17/18 at 22:00; Stop 12/17/18 at 22:01; Status DC Sodium Chloride 1,000 ml @ 1,000 mls/hr 1X ONCE IV Last administered on 12/17/18at 21:47; Start 12/17/18 at 22:00; Stop 12/17/18 at 22:59; Status DC Ondansetron HCl (Zofran) 4 mg PRN Q8HRS PRN IV NAUSEA/VOMITING 1ST CHOICE Last administered on 12/18/18at 04:30; Start 12/17/18 at 22:15; Stop 12/18/18 at 08:49; Status DC Sodium Chloride 1,000 ml @ 150 mls/hr Q6H40M IV Last administered on 12/18/18at 18:30; Start 12/17/18 at 22:30; Stop 12/18/18 at 22:29; Status DC Dextrose (Dextrose 50%-Water Syringe) 12.5 gm PRN Q15MIN PRN IV SEE COMMENTS; Start 12/17/18 at 22:15; Stop 12/18/18 at 08:51; Status DC Insulin Human Lispro (HumaLOG) 0-9 UNITS TIDWMEALS SQ ; Start 12/18/18 at 08:00; Status UNV Dextrose (Dextrose 50%-Water Syringe) 12.5 gm PRN Q15MIN PRN IV SEE COMMENTS; Start 12/18/18 at 01:30; Status UNV Insulin Human Lispro (HumaLOG) 0-9 UNITS TIDWMEALS SQ Last administered on 12/23/18at 08:59; Start 12/18/18 at 08:00 Dextrose (Dextrose 50%-Water Syringe) 12.5 gm PRN Q15MIN PRN IV SEE COMMENTS; Start 12/18/18 at 01:45 Insulin Human Lispro (HumaLOG) 10 units 1X ONCE SQ Last administered on 12/18/18at 02:27; Start 12/18/18 at 02:00; Stop 12/18/18 at 02:01; Status DC Fentanyl Citrate (Fentanyl 2ml Vial) 25 mcg PRN Q2HR PRN IV SEVERE PAIN Last administered on 12/18/18at 02:55; Start 12/18/18 at 02:45 Metoprolol Tartrate (Lopressor) 50 mg BID PO Last administered on 12/23/18at 08:54; Start 12/18/18 at 09:00 Metoprolol Tartrate (Lopressor) 50 mg 1X ONCE PO Last administered on 12/18/18at 04:46; Start 12/18/18 at 05:00; Stop 12/18/18 at 05:02; Status DC Acetaminophen (Tylenol) 650 mg PRN Q6HRS PRN PO mild temp/pain Last administered on 12/18/18at 04:47; Start 12/18/18 at 04:45; Stop 12/18/18 at 08:51; Status DC Ondansetron HCl (Zofran) 4 mg PRN Q6HRS PRN IV NAUSEA/VOMITING 1ST CHOICE Last administered on 12/18/18at 14:00; Start 12/18/18 at 09:00 Acetaminophen (Tylenol) 500 mg PRN Q6HRS PRN PO MILD PAIN / TEMP Last administered on 12/20/18at 09:32; Start 12/18/18 at 09:00 Acetaminophen/ Codeine Phosphate (Tylenol #3) 1 tab PRN Q6HRS PRN PO MODERATE PAIN Last administered on 12/19/18at 11:39; Start 12/18/18 at 09:00 Ceftriaxone Sodium (Rocephin) 1 gm Q24H IVP ; Start 12/18/18 at 21:00; Stop 12/18/18 at 21:00; Status DC Morphine Sulfate (Morphine Sulfate) 2 mg PRN Q2HR PRN IV MODERATE PAIN; Start 12/18/18 at 09:00 Diphenhydramine HCl (Benadryl) 25 mg PRN QHS PRN PO INSOMNIA; Start 12/18/18 at 09:00 Piperacillin Sod/ Tazobactam Sod 2.25 gm/Sodium Chloride 50 ml @ 100 mls/hr Q6HRS IV Last administered on 12/19/18 05:28; Start 12/18/18 at 12:00; Stop 12/19/18 at 10:48; Status DC Lactobacillus Rhamnosus (Culturelle) 1 cap BID PO Last administered on 12/23/18at 08:54; Start 12/18/18 at 21:00 Prochlorperazine Edisylate (Compazine) 10 mg PRN Q6HRS PRN IV NAUSEA/VOMITING 2ND CHOICE Last administered on 12/18/18at 16:18; Start 12/18/18 at 16:15 Meropenem 500 mg/ Sodium Chloride 50 ml @ 100 mls/hr Q6HRS IV Last administered on 12/23/18 05:18; Start 12/19/18 at 12:00 Sodium Chloride 1,000 ml @ 75 mls/hr [id number] IV Last administered on 12/23/18 05:18; Start 12/20/18 at 09:30 Potassium Chloride (Klor-Con) 40 meq 1X ONCE PO Last administered on 12/20/18at 12:30; Start 12/20/18 at 12:30; Stop 12/20/18 at 12:31; Status DC Vitals/I & O Vital Sign - Last 24 Hours 12/22/18 12/22/18 12/22/18 12/22/18 11:00 15:00 19:05 19:15 Temp 98.2 98.2 98.5 98.2 98.2 98.5 Pulse 80 90 92 92 Resp 18 16 18 B/P (MAP) 180/84 (116) 183/84 (117) 182/93 (122) 182/93 Pulse Ox 100 100 100 O2 Delivery Room Air Room Air Room Air 12/22/18 12/22/18 12/23/18 12/23/18 20:00 23:40 03:45 07:00 Temp 98.5 98.3 98.8 98.5 98.3 98.8 Pulse 84 91 91 Resp 18 18 16 B/P (MAP) 158/83 (108) 166/85 (112) 170/90 (116) Pulse Ox 96 97 98 O2 Delivery Room Air Room Air Room Air Room Air 12/23/18 08:54 Pulse 91 B/P (MAP) 170/90 Intake and Output 12/22/18 12/22/18 12/23/18 14:59 22:59 06:59 Intake Total 500 ml 550 ml 900 ml Balance 500 ml 550 ml 900 ml GWYN SCANLON III DO Dec 23, 2018 10:49
[2018-12-23 11:00] VITALS: BP 174/91
--- NOTE | 2018-12-23 13:38 | NUR ---
SW following. Pt has an outpatient IV infusion appointment for 0830 daily at [facility]. RN and family notified. No further SW needs.
[2018-12-23 15:00] VITALS: BP 90/91
--- NOTE | 2018-12-23 17:17 | NUR ---
PRE PICC INSERTION NOTE Allergies and reactions NKDA INR1.1 BUN 6 Cr 0.6 Platelets 260 Blood culture done YES blood culture results POSITIVE E COLI Order Verified YES Consent signed YES Previous PICC placement NO Past Medical/Surgical history and current diagnosis reviewed YES Patient Medical /Surgical History Related to PICC line placement Diabetes Infectious Disease consult Septicemia/Bacteremia Special considerations for PICC line placement Infections PICC placement indication Caustic medication class drug usage, jail antibiotic usage, name of PICC Nurse DORINA GONZALES RN
--- NOTE | 2018-12-23 17:21 | NUR ---
PICC INSERTION NOTE Procedure: Following complete explanation of the PICC procedure including the indications, risks, and potential complications, informed consent was obtained. The possibility for infection was discussed along with signs, symptoms, and prevention. All the [PATIENT'S] questions were answered. Written and verbal patient education was provided. STAFF INTERPRETED FOR PATIENT. FAMILY COULD SPEAK DANISH WELL Hand hygiene performed. Standardized central line checklist was utilized. The patient was placed in the supine position, the arm was prepped with chlorhexidine and patient draped with maximum sterile barrier. [0.5] mL 1% lidocaine was infiltrated into the skin to provide local anesthesia. A thorough assessment of [RIGHT] upper extremity completed. Using real-time ultrasound guidance and standardized micro puncture set, the [RIGHT BASILIC] vein was punctured and a peel away sheath was placed using the modified Seldinger technique. A tip location device was used to ensure adequate catheter placement. The catheter was secured using a securement device and an antimicrobial patch was applied directly on the insertion site followed by a transparent dressing. All ports withdraw blood and flush without resistance. Patient tolerated the procedure without apparent complication(s). [5 YEMENI DOUBLE] Lumen Power PICC placement successful and uncomplicated. Placement verified by EKG tip confirmation system and/or chest x-ray. Tip located in the [SVC] Complications: [NONE]
[2018-12-23 19:00] VITALS: BP 158/77
[2018-12-23] MEDS: ACETAMINOPHEN/CODEINE 300/30MG TABLET. PO PRN (20:38)
[2018-12-23 23:37] VITALS: BP 175/88
[2018-12-24] MEDS: MEROPENEM 500 MG in IV NORMAL SALINE 50ML 50 ML IV SCH ×2 (01:00→05:14)
[2018-12-24 03:33] VITALS: BP 178/87
[2018-12-24] MEDS: ACETAMINOPHEN/CODEINE 300/30MG TABLET. PO PRN (05:15)
[2018-12-24] MEDS: IV NORMAL SALINE 1000ML BAG 1,000 ML IV SCH (06:50)
[2018-12-24 06:55] VITALS: BP 174/87
[2018-12-24] MEDS: LACTOBACILLUS RHAMNOSUS GG 1 CAPSULE. PO SCH (08:58)
[2018-12-24] MEDS: METOPROLOL TART IMMED RELEASE 50 MG TABLET. PO SCH (08:58)
[2018-12-24] MEDS: INSULIN LISPRO 300 UNITS/3 ML INSULN.PEN. SQ SCH ×2 (09:02→12:36)
[2018-12-24] MEDS ORDERED: ERTA1VIA IJ (09:18)
[2018-12-24] MEDS ORDERED: METO50TA6 PO (09:18)
[2018-12-24] MEDS ORDERED: INVANZ IV ONE (09:30)
[2018-12-24] MEDS ORDERED: [UNRECOGNIZED DRUG - OTHER] IV ONE (09:30)
[2018-12-24 10:56] VITALS: BP 143/73
[2018-12-24 15:38] VITALS: BP 160/83
--- NOTE | 2018-12-24 16:45 | NUR ---
Discharge Note: ASHER HERRERA Discharge instructions and discharge home medications reviewed with Family Member and a copy given. All questions have been answered and understanding verbalized. The following instructions and handouts were given: Diet, activity, medication list, and follow up instructions provided to patient and family members. Included PICC line care instructions and outpatient follow up instructions Discontinued lines and drains: PICC line in place with dressing clean dry and intact. Patient discharged to Home or Self Care withFamily Membera Wheelchair
== END 2018-12-24 16:38 | disposition home or self-care (01) | DRG 871 ==
LOC: ER 18:13 → 6 SOUTH 21:28
PROVIDERS: ADMIT Internal Medicine; ATTEND Internal Medicine
PROC: 02HV33Z Insertion of Infusion Device into Superior Vena Cava, Percutaneous Approach (ICD-10-PCS; principal; 2018-12-23)
PROC: B548ZZA Ultrasonography of Superior Vena Cava, Guidance (ICD-10-PCS; 2018-12-23)
DX: A41.51 Sepsis due to Escherichia coli [E. coli] (principal); E11.00 Type 2 diabetes mellitus with hyperosmolarity without nonketotic hyperglycemic-hyperosmolar coma (NKHHC); N17.0 Acute kidney failure with tubular necrosis; E87.1 Hypo-osmolality and hyponatremia; N12 Tubulo-interstitial nephritis, not specified as acute or chronic; I10 Essential (primary) hypertension; I87.8 Other specified disorders of veins; K52.9 Noninfective gastroenteritis and colitis, unspecified; R65.20 Severe sepsis without septic shock; Z82.49 Family history of ischemic heart disease and other diseases of the circulatory system; Z83.3 Family history of diabetes mellitus; Z79.899 Other long term (current) drug therapy
CPT/HCPCS: 36415; 36569; 74176; 80048; 80053; 81001; 82550; 82962; 83036; 83605; 83690; 84484; 85007; 85025; 85610; 87040; 87077; 87086; 87186; 87205; 93005; 96361; 96374; 96375; J0696; J0780; J1335; J1815; J2185; J2405; J2543; J3010; J7030; 99285-25

== ENCOUNTER 2019-03-05 11:32 | Emergency (ER) | payer SELFPAY ==
[~2019-03-05] VITALS: Ht 157.5 cm; Wt 44.0 kg
[~2019-03-05 11:32] MED LIST: ERTA1VIA IJ; METO50TA6 PO
--- NOTE | 2019-03-05 12:56 | EKG ---
[facility] [address] [place] [address] Test Date: 2019-03-05 Test Time: 12:19:04 Pat Name: ASHER HERRERA Department: Room: Gender: F Plow Shaker: EDGAR : 1951-07-03 Requested By: STAFF NON Order Number: [id number] Reading MD: Measurements Intervals Ione Rate: 88 P: -132 MA: 84 QRS: 4 QRSD: 76 T: 59 QT: 348 QTc: 424 Interpretive Statements SINUS RHYTHM NORMAL ECG RI6.01 No previous ECG available for comparison
[2019-03-05 13:08] LABS: BASO % 0 % (0-3); EOS # 0.1 x10^3/uL (0.0-0.7); EOS % 1 % (0-3); HEMATOCRIT 36.3 % (36.0-47.0); HEMOGLOBIN 12.6 g/dL (12.0-15.5); LYMPH % 16 % (24-48); MEAN CORPUSCULAR HEMOGLOBIN 31 pg (25-35); MEAN CORPUSCULAR HGB CONC 35 g/dL (31-37); MEAN CORPUSCULAR VOLUME 91 fL (79-100); MONO # 0.3 x10^3/uL (0.0-1.1); MONO % 6 % (0-9); NEUT # 4.8 x10^3/uL (1.8-7.7); NEUT % 77 % (31-73); PLATELET COUNT 199 x10^3/uL (140-400); WHITE BLOOD COUNT 6.2 x10^3/uL (4.0-11.0)
[2019-03-05 13:13] LABS: BILIRUBIN,URINE NEGATIVE (NEG); CLARITY,URINE CLEAR; COLOR,URINE YELLOW; NITRITE,URINE NEGATIVE (NEG); PH,URINE 6.5; PROTEIN,URINE 30 mg/dL (NEG-TRACE); UROBILINOGEN,URINE 0.2 mg/dL (0.2 mg/dL)
[2019-03-05] MEDS ORDERED: IV NORMAL SALINE 1000ML BAG 1,000 ML IV ONE ×2 (13:15→14:30)
[2019-03-05 13:18] LABS: CALCIUM 9.2 mg/dL (8.5-10.1); CREATININE 0.8 mg/dL (0.6-1.0); POTASSIUM 3.9 mmol/L (3.5-5.1)
[2019-03-05 13:18] LABS: BASE EXCESS ABG -3 mmol/L (-3-3); HCO3 ABG 22 mmol/L (21-28); PCO2 ABG 38 mmHg (35-46); PO2 ABG 95 mmHg (65-108); SAT O2 ABG 97 % (92-99)
--- NOTE | 2019-03-05 13:19 | PHYS DOC ---
Past Medical History Past Medical History: Diabetes-Type II, High Cholesterol, Hypertension Past Surgical History: No Surgical History, Other Additional Past Surgical Histo: oopherectomy Alcohol Use: None Drug Use: None Adult General Chief Complaint Chief Complaint: BLOOD SUGAR PROBLEM HPI HPI Patient is a 67-year-old female who presents to the emergency department for evaluation. Patient states that she did not feel well this morning, generally weak and fatigued. She had a few episodes of dry heaving, but has not had any vomiting. She has not had any fevers or chills, and denies any pain. She has not had any headache, vision changes, focal weakness, chest pain, shortness of breath, abdominal pain, diarrhea, urinary symptoms, or any sensory changes. She is a diabetic and her blood sugar was over 500 at home. There are no alleviating or exacerbating factors to her symptoms otherwise. Review of Systems Review of Systems Constitutional: Denies fever or chills [] Eyes: Denies change in visual acuity, redness, or eye pain [] HENT: Denies nasal congestion or sore throat [] Respiratory: Denies cough or shortness of breath [] Cardiovascular: The patient denies any shortness of breath, chest pain, palpitations, or orthopnea [] GI: Denies abdominal pain, vomiting, bloody stools or diarrhea [] : Denies dysuria or hematuria [] Musculoskeletal: Denies back pain or joint pain [] Integument: Denies rash or skin lesions [] Neurologic: Denies headache, focal weakness or sensory changes [] Endocrine: Reports polyuria and polydipsia [] All other systems were reviewed and found to be within normal limits, except as documented in this note. Current Medications Current Medications Current Medications Medications (Trade) Dose Ordered Sig/Gareth Start Time Stop Time Status Last Admin Dose Admin Sodium Chloride 1,000 ml @ 1,000 mls/hr 1X ONCE 03/05/19 14:30 03/05/19 15:29 DC 03/05/19 14: 1,000 MLS/HR Allergies Allergies Allergies Coded Allergies Type Severity Reaction Last Updated Verified I S O L A T I O N *CONTACT* Allergy Unknown 01/02/19 Yes No Known Medication Allergies Allergy Unknown 01/02/19 Yes Physical Exam Physical Exam PHYSICAL EXAM: CONSTITUTIONAL: Well developed, well nourished HEAD: normocephalic, atraumatic EENT: PERRL, EOMI. Conjunctivae normal color, sclerae non-icteric; mildly dry mucous membranes. NECK: Supple, non-tender; no meningismus. LUNGS: Lungs CTA, breathing even and unlabored. Normal air movement. HEART: Regular rate and rhythm, no murmur CHEST: No deformity; non-tender ABDOMEN: The abdomen is soft, and non-tender, no masses or bruits. EXTREM: Normal ROM; no deformity, no calf tenderness. Normal pulses palpable in all extremities. There is no pedal edema. SKIN: No rash; no diaphoresis NEURO: Alert; normal speech and cognition; CN's grossly intact; strength grossly intact without focal deficit. BACK: No CVA TTP. Current Patient Data Vital Signs Vital Signs Date Time Temp Pulse Resp B/P (MAP) Pulse Ox O2 Delivery O2 Flow Rate FiO2 03/05/19 14:17 78 16 203/93 (129) 100 Room Air 03/05/19 12:10 98.0 98.0 Lab Values Laboratory Tests Test 03/05/19 11:46 03/05/19 12:15 03/05/19 12:30 03/05/19 13:08 Glucose (Fingerstick) 446 mg/dL (70-99) H Urine Collection Type Unknown Urine Color Yellow Urine Clarity Clear Urine pH 6.5 Urine Specific [place] 1.025 Urine Protein 30 mg/dL (NEG-TRACE) Urine Glucose (UA) >=1000 mg/dL (NEG) Urine Ketones (Stick) Negative mg/dL (NEG) Urine Blood Negative (NEG) Urine Nitrite Negative (NEG) Urine Bilirubin Negative (NEG) Urine Urobilinogen Dipstick 0.2 mg/dL (0.2 mg/dL) Urine Leukocyte Esterase Trace (NEG) Urine RBC 0 /HPF (0-2) Urine WBC 11-20 /HPF (0-4) Urine Bacteria Many /HPF (0-FEW) Urine Yeast Present /HPF White Blood Count 6.2 x10^3/uL (4.0-11.0) Red Blood Count 4.00 x10^6/uL (3.50-5.40) Hemoglobin 12.6 g/dL (12.0-15.5) Hematocrit 36.3 % (36.0-47.0) Mean Corpuscular Volume 91 fL (79-100) Mean Corpuscular Hemoglobin 31 pg (25-35) Mean Corpuscular Hemoglobin Concent 35 g/dL (31-37) Red Cell Distribution Width 13.0 % (11.5-14.5) Platelet Count 199 x10^3/uL (140-400) Neutrophils (%) (Auto) 77 % (31-73) H Lymphocytes (%) (Auto) 16 % (24-48) L Monocytes (%) (Auto) 6 % (0-9) Eosinophils (%) (Auto) 1 % (0-3) Basophils (%) (Auto) 0 % (0-3) Neutrophils # (Auto) 4.8 x10^3/uL (1.8-7.7) Lymphocytes # (Auto) 1.0 x10^3/uL (1.0-4.8) Monocytes # (Auto) 0.3 x10^3/uL (0.0-1.1) Eosinophils # (Auto) 0.1 x10^3/uL (0.0-0.7) Basophils # (Auto) 0.0 x10^3/uL (0.0-0.2) Sodium Level 138 mmol/L (136-145) Potassium Level 3.9 mmol/L (3.5-5.1) Chloride Level 99 mmol/L (98-107) Carbon Dioxide Level 26 mmol/L (21-32) Anion Gap 13 (6-14) Blood Urea Nitrogen 16 mg/dL (7-20) Creatinine 0.8 mg/dL (0.6-1.0) Estimated GFR (Cockcroft-Gault) 72.0 BUN/Creatinine Ratio 20 (6-20) Glucose Level 390 mg/dL (70-99) H Calcium Level 9.2 mg/dL (8.5-10.1) Total Bilirubin 0.3 mg/dL (0.2-1.0) Aspartate Amino Transferase (AST) 21 U/L (15-37) Alanine Aminotransferase (ALT) 26 U/L (14-59) Alkaline Phosphatase 82 U/L (46-116) Troponin I Quantitative < 0.017 ng/mL (0.000-0.055) Total Protein 7.9 g/dL (6.4-8.2) Albumin 3.8 g/dL (3.4-5.0) Albumin/Globulin Ratio 0.9 (1.0-1.7) L Lipase 228 U/L (73-393) Acetone Level Neg (NEG) O2 Saturation 97 % (92-99) Arterial Blood pH 7.38 (7.35-7.45) Arterial Blood pCO2 at Patient Temp 38 mmHg (35-46) Arterial Blood pO2 at Patient Temp 95 mmHg (65-108) Arterial Blood HCO3 22 mmol/L (21-28) Arterial Blood Base Excess -3 mmol/L (-3-3) FiO2 21 Test 03/05/19 14:13 03/05/19 15:53 Glucose (Fingerstick) 312 mg/dL (70-99) H 288 mg/dL (70-99) H Laboratory Tests 03/05/19 12:30 Laboratory Tests 03/05/19 12:30 EKG EKG Normal sinus rhythm at a rate of 80 beats for minute, normal axis, normal intervals. There are no acute ischemic ST/T changes. Radiology/Procedures Radiology/Procedures [] Course & Med Decision Making Course & Med Decision Making Pertinent Labs and Imaging studies reviewed. (See chart for details) []4:07 PM: The patient's condition remains stable, she is feeling significantly better at this time. She is back to normal. Her blood sugar has improved to under 300. I discussed importance of close follow-up with her PCP at [facility], the need for further diabetes monitoring and possible medication adjustment and return precautions. The patient's UTI might also be contributing to her symptoms. Dragon Disclaimer Dragon Disclaimer This electronic medical record was generated, in whole or in part, using a voice recognition dictation system. Departure Departure Impression: Primary Impression: Hyperglycemia Additional Impression: UTI (urinary tract infection) Disposition: HOME, SELF-CARE Condition: STABLE Patient Instructions: Hyperglycemia, Urinary Tract Infection Scripts Nitrofurantoin Monohyd/M-Cryst (MACROBID 100 MG CAPSULE) 100 Mg Capsule 1 CAP PO BID, #14 CAP Prov: RAMANA CID MD 03/05/19 Problem Qualifiers RAMANA CID MD Mar 05, 2019 13:19
[2019-03-05 13:20] LABS: BACTERIA,URINE MANY /HPF (0-FEW)
[2019-03-05 13:22] LABS: RBC,URINE 0 /HPF (0-2); YEAST,URINE PRESENT /HPF
[2019-03-05 13:23] LABS: ALBUMIN 3.8 g/dL (3.4-5.0); ALBUMIN/GLOBULIN RATIO 0.9 (1.0-1.7); TOTAL BILIRUBIN 0.3 mg/dL (0.2-1.0); TOTAL PROTEIN 7.9 g/dL (6.4-8.2)
--- NOTE | 2019-03-05 13:31 | RAD ---
PORTABLE CHEST 1V Clinical indications: Hyperglycemia. Dizziness. COMPARISON: None available. Findings: Bilateral symmetric nipple shadows are seen. No acute lung infiltrate or pleural effusion or pulmonary edema or lung mass or pneumothorax is seen. The heart size, pulmonary vasculature, mediastinum and both geetha are unremarkable. Impression: No acute radiographic abnormality is seen. Electronically signed by: Víctor Varma MD (03/05/2019 1:27 PM) [facility]
[2019-03-05 13:51] LABS: FIO2 ABG 21
[2019-03-05 15:47] VITALS: BP 180/72
[2019-03-05] MEDS ORDERED: NITR100C62 PO (16:09)
== END 2019-03-05 16:39 | disposition home or self-care (01) ==
LOC: EDBD 11:32 → ER 11:32
DX: N39.0 Urinary tract infection, site not specified (principal); E11.65 Type 2 diabetes mellitus with hyperglycemia; E78.00 Pure hypercholesterolemia, unspecified; I10 Essential (primary) hypertension; Z90.722 Acquired absence of ovaries, bilateral; Z91.041 Radiographic dye allergy status
CPT/HCPCS: 36415; 36600; 71045; 80053; 81001; 82010; 82805; 82962; 83690; 84484; 85025; 87086; 87186; 93005; 96360; 96361; 99285; J7030